=== PATIENT | male | born 1965 | race Caucasian/White ===

== ENCOUNTER 2024-01-24 09:19 | Outpatient (REF) | payer OTHER, SELFPAY ==
[2024-01-24 10:13] LABS: Eosinophils Absolute Auto 0.1 X10*3/uL (0.0-0.4); Eosinophils Percent Auto 3.5 % (0-4); Hematocrit 46.2 % (42.0-52.0); Hemoglobin 15.6 g/dl (14.0-18.0); Imm Gran Abs Auto 0.01 X10*3/uL (0.00-0.03); Imm Gran Pct Auto 0.3 % (0.0-0.4); Lymphocytes Absolute Auto 0.7 X10*3/uL (1.2-4.9); Lymphocytes Percent Auto 25.1 % (20-40); Mean Corpuscular HGB Conc 33.8 g/dl (31.0-36.0); Mean Corpuscular Hemoglobin 31.3 pg (27.0-33.0); Mean Corpuscular Volume 92.8 fL (80.0-98.0); Mean Platelet Volume 11.7 fL (9.4-12.4); Monocytes Absolute Auto 0.3 X10*3/uL (0.1-1.2); Monocytes Percent Auto 10.5 % (2-11); Neutrophils Absolute Auto 1.7 x10*3/uL (2.0-8.3); Neutrophils Percent Auto 59.6 % (45-73); Red Blood Count 4.98 X10*6/uL (4.60-5.80); Red Cell Distribution Width 14.4 % (11.0-16.0); White Blood Count 2.9 X10*3/uL (4.8-10.8)
[2024-01-24 10:17] LABS: Platelet Count 57 X10*3/uL (160-400)
[2024-01-24 10:20] LABS: Estimated Average Glucose 120 mg/dL; Hemoglobin A1c % 5.8 % (<6.0)
[2024-01-24 10:31] LABS: MANUAL DIFF FLAG SCAN
[2024-01-24 10:32] LABS: SLIDE REVIEW VERIFIED
[2024-01-24 10:45] LABS: Alanine Aminotransferase 146 U/L (0-40); Alkaline Phosphatase 152 U/L (39-117); Anion Gap 10 (12-20); Aspartate Amino Transferase 102 U/L (5-37); Bilirubin Total 0.9 mg/dL (0.0-1.0); Blood Urea Nitrogen 15 mg/dL (9-16); Carbon Dioxide 28 mmol/L (22-29); Chloride 105 mmol/L (96-108); Cholesterol 197 mg/dL (<200); Estimated Glomerular Filt Rate > 60; Glucose Random 123 mg/dL (60-115); HDL Cholesterol 60 mg/dL (>40); LDL Cholesterol Calculated 114 mg/dL (<100); Potassium 5.1 mmol/L (3.3-5.1); Sodium 138 mmol/L (135-145); Triglycerides 119 mg/dL (<150)
[2024-01-24 11:01] LABS: Thyroid Stimulating Hormone 2.06 uIU/mL (0.32-4.0)
[2024-01-25 11:03] LABS: Prolactin 56.2 ng/mL (2.0-18.0)
== END 2024-01-24 09:20 | disposition home or self-care (01) ==
LOC: HO.LAB 09:19
PROVIDERS: Visit Provider Nurse Practitioner Psychiatric/Mental Health
DX: Z79.899 Other long term (current) drug therapy (principal)
CPT/HCPCS: 36415; 80053; 80061; 83036; 84146; 84443; 85025

== ENCOUNTER 2024-01-29 12:23 | Inpatient (IN) | payer OTHER, SELFPAY ==
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
[2024-01-29 12:46] VITALS: BP 138/90; PULSE 115; RESP 17; TEMP 36.7; O2SAT 96; BMI 22.9
[2024-01-29 14:12] LABS: MANUAL DIFF FLAG NO
[2024-01-29 14:19] LABS: Basophils Percent Auto 1.1 % (0-2); Eosinophils Absolute Auto 0.1 X10*3/uL (0.0-0.4); Eosinophils Percent Auto 2.8 % (0-4); Imm Gran Abs Auto 0.01 X10*3/uL (0.00-0.03); Imm Gran Pct Auto 0.3 % (0.0-0.4); Lymphocytes Absolute Auto 0.9 X10*3/uL (1.2-4.9); Lymphocytes Percent Auto 23.9 % (20-40); Mean Corpuscular HGB Conc 34.9 g/dl (31.0-36.0); Mean Corpuscular Hemoglobin 31.3 pg (27.0-33.0); Mean Corpuscular Volume 89.6 fL (80.0-98.0); Mean Platelet Volume 11.5 fL (9.4-12.4); Monocytes Absolute Auto 0.4 X10*3/uL (0.1-1.2); Monocytes Percent Auto 12.1 % (2-11); Neutrophils Absolute Auto 2.1 x10*3/uL (2.0-8.3); Neutrophils Percent Auto 59.8 % (45-73); Platelet Count 59 X10*3/uL (160-400); Red Cell Distribution Width 13.7 % (11.0-16.0); White Blood Count 3.6 X10*3/uL (4.8-10.8)
[2024-01-29 14:29] LABS: Alanine Aminotransferase 127 U/L (0-40); Alkaline Phosphatase 151 U/L (39-117); Anion Gap 14 (12-20); Aspartate Amino Transferase 81 U/L (5-37); Bilirubin Direct 0.3 mg/dL (0.0-0.5); Bilirubin Total 0.5 mg/dL (0.0-1.0); Blood Urea Nitrogen 18 mg/dL (9-16); Carbon Dioxide 25 mmol/L (22-29); Chloride 101 mmol/L (96-108); Creatinine Clr Calc Pharmacy 68.7; Estimated Glomerular Filt Rate > 60; Ethanol < 10 mg/dL; Glucose Random 150 mg/dL (60-115); Potassium 4.3 mmol/L (3.3-5.1); Sodium 136 mmol/L (135-145)
--- NOTE | 2024-01-29 16:43 | PC.NURSE ---
this RN resumed care of pt at 1700. pt now awake and walking around pod in no apparent distress. urine obtained/sent to lab by tech. pt provided w/ snacks and gingerale upon request. pt now speaking w/ care team at this time. no sob/wob noted. respirations even and unlabored. plan of care ongoing.
[2024-01-29 17:13] LABS: Amphetamine Screen Urine Not Detected (Not Detect); Barbiturates, Urine Not Detected (Not Detect); Benzodiazepines Screen Urine Not Detected (Not Detect); Buprenorphine Scr Not Detected (Not Detect); Cannabinoid Screen Urine Not Detected (Not Detect); Cocaine Screen Urine Not Detected (Not Detect); Fentanyl, urine Not Detected (Not Detect); Methadone Screen, Urine Not Detected (Not Detect); Opiate Screen Urine POSITIVE (Not Detect); Oxycodone Screen Urine Not Detected (Not Detect); Phencyclidine Screen Urine Not Detected (Not Detect)
--- NOTE | 2024-01-29 19:28 | PC.NURSE ---
patient appears to remain at rest at present respirations are even and unlabored patient appears in no distress
[2024-01-30 06:11] VITALS: BP 125/72; PULSE 60; RESP 16; TEMP 36.6; O2SAT 96
--- NOTE | 2024-01-30 07:12 | PC.NURSE ---
Assumed care of patient. Patient is observed resting quietly in bed. No signs of distress, breathing is even and unlabored. Will continue plan of care.
[2024-01-30] MEDS: risperiDONE 3 MG TABLET PO ×2 (09:15→20:52)
[2024-01-30] MEDS: Propranolol HCL 10 MG TABLET PO (09:15)
[2024-01-30] MEDS: Benztropine Mesylate 1 MG TABLET PO ×2 (09:15→20:51)
[2024-01-30] MEDS: Omeprazole 20 MG CAPSULE.DR PO (09:15)
[2024-01-30] MEDS: Acetaminophen 325 MG TABLET 650 MG PO (10:59)
--- NOTE | 2024-01-30 11:27 | MHC.EDTECH ---
Patient refused EKG, patient states No and No, I don't need that . Patient resting, respirations even and unlabored.
[2024-01-30 16:16] VITALS: RESP 16
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
[2024-01-30] MEDS: traZODone HCL 50 MG TABLET 150 MG PO (20:52)
--- NOTE | 2024-01-30 23:24 | MHC.CARE ---
[facility] was contacted for insurance authorization and information is as followed: Josr from [facility] approved 5 days starting today 01/30/24 with the last cover day occurring on 02/03/24. Authorization number is as followed: [id number].
[2024-01-31 08:00] VITALS: RESP 16
[2024-01-31] MEDS: Benztropine Mesylate 1 MG TABLET PO ×2 (09:15→21:09)
[2024-01-31] MEDS: risperiDONE 3 MG TABLET PO ×2 (09:15→21:09)
--- NOTE | 2024-01-31 09:28 | PC.NURSE ---
Per administration WC staff to fill room officially despite current communication order. Staff aware that Prabhu continues to need a private room in practice.
--- NOTE | 2024-01-31 11:59 | P.HPPS_ITS ---
[facility] Date of Service: 01/31/24 Chief Complaint: psychosis Sources of Information: patient interviewed and chart reviewed [facility] Subjective Notes: Section 12B Narrative: As per ED Note: According to EMS, patient had an argument with another patient. There was no SI or HI threats. Patient states that this was an argument, after the argument he requested his medications to calm down, patient was put on a Section 12 and brought to the ED. Patient denies SI or HI, states that he feels much better Patient has limited engagement with interview. Focused on discharge. Irritable when discussing same. Recent history is very unclear. Was aggressive towards staff at respite as per patient when they got involved when he argued with another peer I was upset . unable to elaborate on details. Is aware he is held on a Section 12 and explained 3 business days and [place] warning. States he has no history of psychiatric illness, but does take psychiatric medications and that they do nothing for him, with the exception of trazodone for sleep. Reports that he gets services through [facility]. Reports being at a [facility] respite bed for the last 2-3 weeks. Patient adamantly denies hearing voices, feeling suicidal or homicidal. Denies feeling depressed or paranoid. Reports after treating him okay for discharge. noted lab work recently report 04/17/2024 with elevated prolactin, liver enzymes and low white cell count. Liver enzymes and white cell count improved. Unclear why these labs were done as there was no associated clinical information in the record i.e. likely ordered from an external source. Past Psychiatric History: States he has no history of psychiatric illness, but does take psychiatric medications and that they do nothing for him, with the exception of trazodone for sleep. Reports that he gets services through [facility]. Reports being at a [facility] respite bed for the last 2-3 weeks. Medical Evaluation Reviewed: Yes noted lab work recently report 04/17/2024 with elevated prolactin, liver enzymes and low white cell count. Liver enzymes and white cell count improved. Unclear why these labs were done as there was no associated clinical information in the record i.e. likely ordered from an external source. [facility] Social History: [facility] respite bed x 2-3 weeks as per patient through [facility]. unclear legal history and if he is on parole or probation. Reports being single. Has 2 adult children. Ninth grade education. Substance History: Reports used to have an issue with crack cocaine, but not in years Diagnostics Vital Signs (24Hr): Vital Signs - 24 hr 01/30/24 16:16 01/31/24 08:00 Respiratory Rate 16 16 BMI result Body Mass Index 22.9 Labs 01/29/24 14:08 01/29/24 14:08 Labs: Laboratory Results - last 48 hr 01/29/24 01/29/24 14:08 16:40 WBC 3.6 L RBC 4.80 Hgb 15.0 Hct 43.0 MCV 89.6 MCH 31.3 MCHC 34.9 RDW 13.7 Plt Count 59 L MPV 11.5 Immature Gran % (Auto) 0.3 Neut % (Auto) 59.8 Lymph % (Auto) 23.9 [place] % (Auto) 12.1 H Eos % (Auto) 2.8 Baso % (Auto) 1.1 Lymph # (Auto) 0.9 L [place] # (Auto) 0.4 Eos # (Auto) 0.1 Baso # (Auto) 0.0 Abs Immat Gran (auto) 0.01 Absolute Neuts (auto) 2.1 Absolute Nucleated RBC 0.000 Nucleated RBC % (auto) 0.0 Sodium 136 Potassium 4.3 Chloride 101 Carbon Dioxide 25 Anion Gap 14 BUN 18 H Creatinine 1.15 Estim Creat Clear Calc 68.7 Estimated GFR > 60 Random Glucose 150 H Calcium 10.0 Total Bilirubin 0.5 Direct Bilirubin 0.3 AST 81 H ALT 127 H Alkaline Phosphatase 151 H Total Protein 8.0 Albumin 4.0 Urine Opiates Screen POSITIVE H Ur Buprenorphine Scrn Not Detected Ur Oxycodone Screen Not Detected Urine Methadone Screen Not Detected Urine Fentanyl Screen Not Detected Ur Barbiturates Screen Not Detected Ur Phencyclidine Scrn Not Detected Ur Amphetamines Screen Not Detected U Benzodiazepines Scrn Not Detected Urine Cocaine Screen Not Detected U Marijuana (THC) Screen Not Detected Ethyl Alcohol < 10 Meds/Allergies Meds Home Medications ?Medication ?Instructions ?Recorded ?Confirmed ?Type benztropine 1 mg tablet 1 mg PO BID 01/30/24 01/30/24 History diphenhydramine HCl 25 mg tablet 25 mg PO BEDTIME 01/30/24 01/30/24 History (Banophen) pantoprazole 40 mg tablet,delayed 40 mg PO DAILY 01/30/24 01/30/24 History release propranolol 10 mg tablet 10 mg PO TID tremor 01/30/24 01/30/24 History risperidone 1 mg tablet 1 mg PO BEDTIME PRN Anxiety 01/30/24 01/30/24 History risperidone 3 mg tablet 3 mg PO BID 01/30/24 01/30/24 History trazodone 100 mg tablet 75 - 150 mg PO BEDTIME 01/30/24 01/30/24 History Allergies Allergies Allergy/AdvReac Type Severity Reaction Status Date / Time No Known Allergies Allergy Verified 01/29/24 12:58 Mental Status Exam Mental Status Exam Narrative: in room. Casually dressed. Irritable. Self-care limited. Guarded. Is alert and oriented. Very focused on discharge. Denies depression. Denies SI or HI. Denies hallucinations or paranoia. Insight and judgment limited Assessment & Plan Assessment & Plan (1) Psychosis: Status: Acute Code(s): F29 - Unspecified psychosis not due to a substance or known physiological condition Plan 58-year-old male with very unclear psychiatric history, on psychotropic regimen consistent with schizophrenia or schizoaffective disorder. Unclear who current treaters are or levels of support. Patient is a poor historian, guarded and also angry about being in the hospital. Noted lab work recently report 04/17/2024 with elevated prolactin, liver enzymes and low white cell count. Liver enzymes and white cell count improved. Unclear why these labs were done as there was no associated clinical information in the record i.e. likely ordered from an external source. 1) no changes to current regimen 2) S12 3) Primary team will need to liaise with community supports and providers regarding medication regimen, levels of support, rationale for recent lab work including prolactin level which was elevated and if there is any associated imaging for history related to same. Until that information is known, no clear indication to adjust current medication regimen Patient educated on: therapeutic strategies Informed Consent: further education needed Reason for continued inpatient stay Substantial Risk for: harm to others Statement Statement: I have reviewed the history and physical and performed a pertinent examination on my patient. No changes have occurred unless specified. If the History and Physical was not performed prior to admission, the Hospitalist's service will be consulted for completing the admission physical. Time Spent With Patient Time: Total time managing care of this patient today ____ minutes.
[2024-01-31 13:09] LABS: Cholesterol 172 mg/dL (<200); Estimated Average Glucose 117 mg/dL; HDL Cholesterol 50 mg/dL (>40); Hemoglobin A1c % 5.7 % (<6.0); LDL Cholesterol Calculated 98 mg/dL (<100); Triglycerides 122 mg/dL (<150)
[2024-01-31] MEDS: traZODone HCL 50 MG TABLET 150 MG PO (21:09)
[2024-02-01 09:00] VITALS: RESP 16
[2024-02-01] MEDS: risperiDONE 3 MG TABLET PO ×2 (10:24→19:54)
[2024-02-01] MEDS: Benztropine Mesylate 1 MG TABLET PO ×2 (10:24→19:54)
--- NOTE | 2024-02-01 10:42 | P.PNPSI_ITS ---
Subjective Subjective Date of Service: 02/01/24 Reason For Visit: psychosis Subjective Notes: [place] Warning and Section 12B Interim History: Met with patient. Discussed with nursing. Overall no management yesterday since yesterday. Today he is much less irritable. Reports he is sleeping well. Staff are treating him normally. Appetite good. Denies depression. Denies paranoia or hallucinations. Reports not needing to be in the hospital and wanting discharge. Medication Compliance: Yes Side effects from medications: No Attending Groups: No Review of Systems Acute medical concerns: No Review of Systems Review of Systems Nothing acute notable Mental Status Exam Mental Status Exam Narrative: in room. Casually dressed. Less irritable. Self-care limited. Guarded. Is alert and oriented. Remains focused on discharge. Denies depression. Denies SI or HI. Denies hallucinations or paranoia. Insight and judgment limited Diagnostics Vital Signs (24Hr): Vital Signs - 24 hr 02/01/24 09:00 Respiratory Rate 16 BMI result Body Mass Index 22.9 Labs 01/29/24 14:08 01/29/24 14:08 Labs: Laboratory Results - last 48 hr 01/29/24 14:08 Estimat Average Glucose 117 Hemoglobin A1c % 5.7 Triglycerides 122 Cholesterol 172 LDL Cholesterol, Calc 98 HDL Cholesterol 50 Medications Medications Current Medications Acetaminophen (Acetaminophen 325 Mg Tablet) 650 mg PO Q6H PRN PRN Reason: Headache/Pain Mild Scale (1-3) Al Hydroxide/Mg Hydroxide (Magnesium Hydrox/Alum Hydrox 30 Ml Oral.Susp) 30 ml PO Q6H PRN PRN Reason: Heartburn/Nausea Benztropine Mesylate (Benztropine Mesylate 1 Mg Tablet) 1 mg PO BID [facility] Last Admin: 02/01/24 10:24 Dose: 1 mg Diphenhydramine HCl (Diphenhydramine Hcl 25 Mg Capsule) 25 mg PO BEDTIME [facility] Last Admin: 01/31/24 21:11 Dose: Not Given Haloperidol Lactate (Haloperidol Lactate 5 Mg/Ml Vial) 5 mg IM BID PRN PRN Reason: If refuses PO Risperdal Hydroxyzine HCl (Hydroxyzine Hcl 25 Mg Tablet) 25 mg PO Q6H PRN PRN Reason: mild Anxiety Magnesium Hydroxide (Milk Of Magnesia 30 Ml Oral.Susp) 30 ml PO DAILY PRN PRN Reason: Constipation Nicotine (Nicotine 21 Mg Patch.Td24) 21 mg TRANSDERMA DAILY PRN PRN Reason: smoking cessation Nicotine Polacrilex (Nicotine Polacrilex 2 Mg Gum) 4 mg BUCCAL Q2H PRN PRN Reason: Nicotine Cravings Olanzapine (Olanzapine 5 Mg Tablet) 5 mg PO TID PRN PRN Reason: agitation Omeprazole (Omeprazole 20 Mg Capsule.Dr) 20 mg PO DAILY@0630 [facility] Last Admin: 02/01/24 06:17 Dose: Not Given Propranolol HCl (Propranolol Hcl 10 Mg Tablet) 10 mg PO TID [facility]; Protocol Last Admin: 02/01/24 10:00 Dose: Not Given Risperidone (Risperidone 1 Mg Tablet) 1 mg PO BEDTIME PRN PRN Reason: Anxiety Risperidone (Risperidone 3 Mg Tablet) 3 mg PO BID [facility] Last Admin: 02/01/24 10:24 Dose: 3 mg Trazodone HCl (Trazodone Hcl 50 Mg Tablet) 150 mg PO BEDTIME [facility] Last Admin: 01/31/24 21:09 Dose: 100 mg Trazodone HCl (Trazodone Hcl 50 Mg Tablet) 50 mg PO BEDTIME MRX1 PRN PRN Reason: Insomnia Allergies Allergies Allergy/AdvReac Type Severity Reaction Status Date / Time No Known Allergies Allergy Verified 01/29/24 12:58 Assessment & Plan Assessment & Plan (1) Psychosis: Status: Acute Code(s): F29 - Unspecified psychosis not due to a substance or known physiological condition Plan 58-year-old male with very unclear psychiatric history, on psychotropic regimen consistent with schizophrenia or schizoaffective disorder. Unclear who current treaters are or levels of support. Patient is a poor historian, guarded and also angry about being in the hospital. Noted lab work recently report 04/17/2024 with elevated prolactin, liver enzymes and low white cell count. Liver enzymes and white cell count improved. Unclear why these labs were done as there was no associated clinical information in the record i.e. likely ordered from an external source. 1) no changes to current regimen 2) S12 3) Primary team will need to liaise with community supports and providers regarding medication regimen, levels of support, rationale for recent lab work including prolactin level which was elevated and if there is any associated imaging for history related to same. Until that information is known, no clear indication to adjust current medication regimen 01/31: no changes Reason for continued inpatient stay Substantial Risk for: inability to function Time Spent With Patient Time: Total time managing care of this patient today ____ minutes.
[2024-02-01] MEDS: traZODone HCL 50 MG TABLET 150 MG PO (19:52)
[2024-02-02 08:00] VITALS: RESP 18
[2024-02-02] MEDS: risperiDONE 3 MG TABLET PO ×2 (08:38→20:47)
[2024-02-02] MEDS: Benztropine Mesylate 1 MG TABLET PO ×2 (08:38→20:47)
[2024-02-02 08:42] LABS: Alanine Aminotransferase 124 U/L (0-40); Albumin Level 3.7 g/dL (3.5-5.0); Alkaline Phosphatase 128 U/L (39-117); Anion Gap 13 (12-20); Aspartate Amino Transferase 98 U/L (5-37); Bilirubin Total 0.6 mg/dL (0.0-1.0); Blood Urea Nitrogen 15 mg/dL (9-16); Calcium 10.1 mg/dL (8.4-10.2); Carbon Dioxide 25 mmol/L (22-29); Chloride 106 mmol/L (96-108); Creatinine Clr Calc Pharmacy 82.3; Estimated Glomerular Filt Rate > 60; Glucose Random 118 mg/dL (60-115); Sodium 139 mmol/L (135-145); Total Protein 7.4 g/dL (6.5-8.0)
[2024-02-02] MEDS: traZODone HCL 50 MG TABLET 150 MG PO (20:46)
--- NOTE | 2024-02-02 22:44 | P.PNPSI_ITS ---
Subjective Subjective Date of Service: 02/02/24 Reason For Visit: psychosis Interim History: met with patient; discussed with team Pt calm, friendly pt discussed medication and he said he's doing well on Risperdal pills and he does not want to get on Invega Sustenna; pt explains he knows it's on the community angulo but that designer/writer should allow his input and he says he has been doing well on Risperdal and will continue to take it (Risperdal was only recently increased to 3 mg BID which seems to have made the difference). He expressed paranoid thinking about outpt provider that he and others maybe tampering with medications or that wanting him to take BEAL is about money...which is why he does not want BEAL. Pt said he's a very rich man and has a lot of connections and he is considering pressing charges against outpt prescriber. regarding incident at [facility], he says small verbal altercation which resolved soon; he says we agrue, then we laugh about it...that its not a big deal. that said, pt only expresses paranoid ideations when designer/writer or staff probe; otherwise, none expressed and pt has remained in good behavioral and impulse control and appropriate with peers and staff, making lighthearted jokes. Mental Status Exam Mental Status Exam Narrative: Pt is alert and oriented; behavior is cooperative, friendly and calm; patient is not in distress; dressed in casual attire with good hygiene; mood is described as good and affect congruent; eye contact appropriate; Speech is normal rate, volume and prosody and not pressured; no psychomotor agitation/retardation present; thought process is organized and goal directed; Thought content is on tx; otherwise pertinent to relevant topics; intermittent paranoid ideations but only expressed if staff inquires; denies any SI/HI. There is no evidence of perceptual disturbance and denies AVH. Patients insight and judgment impaired but at baseline and adequate. Diagnostics Vital Signs (24Hr): Vital Signs - 24 hr 02/02/24 08:00 Respiratory Rate 18 BMI result Body Mass Index 22.9 Labs 01/29/24 14:08 02/02/24 08:11 Labs: Laboratory Results - last 48 hr 02/02/24 08:11 Sodium 139 Potassium 5.0 Chloride 106 Carbon Dioxide 25 Anion Gap 13 BUN 15 Creatinine 0.96 Estim Creat Clear Calc 82.3 Estimated GFR > 60 Random Glucose 118 H Calcium 10.1 Total Bilirubin 0.6 AST 98 H ALT 124 H Alkaline Phosphatase 128 H Total Protein 7.4 Albumin 3.7 Medications Medications Current Medications Acetaminophen (Acetaminophen 325 Mg Tablet) 650 mg PO Q6H PRN PRN Reason: Headache/Pain Mild Scale (1-3) Al Hydroxide/Mg Hydroxide (Magnesium Hydrox/Alum Hydrox 30 Ml Oral.Susp) 30 ml PO Q6H PRN PRN Reason: Heartburn/Nausea Benztropine Mesylate (Benztropine Mesylate 1 Mg Tablet) 1 mg PO BID [facility] Last Admin: 02/02/24 20:47 Dose: 1 mg Diphenhydramine HCl (Diphenhydramine Hcl 25 Mg Capsule) 25 mg PO BEDTIME [facility] Last Admin: 02/02/24 20:48 Dose: Not Given Haloperidol Lactate (Haloperidol Lactate 5 Mg/Ml Vial) 5 mg IM BID PRN PRN Reason: If refuses PO Risperdal Hydroxyzine HCl (Hydroxyzine Hcl 25 Mg Tablet) 25 mg PO Q6H PRN PRN Reason: mild Anxiety Magnesium Hydroxide (Milk Of Magnesia 30 Ml Oral.Susp) 30 ml PO DAILY PRN PRN Reason: Constipation Nicotine (Nicotine 21 Mg Patch.Td24) 21 mg TRANSDERMA DAILY PRN PRN Reason: smoking cessation Nicotine Polacrilex (Nicotine Polacrilex 2 Mg Gum) 4 mg BUCCAL Q2H PRN PRN Reason: Nicotine Cravings Olanzapine (Olanzapine 5 Mg Tablet) 5 mg PO TID PRN PRN Reason: agitation Omeprazole (Omeprazole 20 Mg Capsule.Dr) 20 mg PO DAILY@0630 [facility] Last Admin: 02/02/24 08:39 Dose: Not Given Propranolol HCl (Propranolol Hcl 10 Mg Tablet) 10 mg PO TID [facility]; Protocol Last Admin: 02/02/24 20:49 Dose: Not Given Risperidone (Risperidone 1 Mg Tablet) 1 mg PO BEDTIME PRN PRN Reason: Anxiety Risperidone (Risperidone 3 Mg Tablet) 3 mg PO BID [facility] Last Admin: 02/02/24 20:47 Dose: 3 mg Trazodone HCl (Trazodone Hcl 50 Mg Tablet) 150 mg PO BEDTIME [facility] Last Admin: 02/02/24 20:46 Dose: 100 mg Trazodone HCl (Trazodone Hcl 50 Mg Tablet) 50 mg PO BEDTIME MRX1 PRN PRN Reason: Insomnia Allergies Allergies Allergy/AdvReac Type Severity Reaction Status Date / Time No Known Allergies Allergy Verified 01/29/24 12:58 Assessment & Plan Assessment & Plan (1) Psychosis: Status: Acute Code(s): F29 - Unspecified psychosis not due to a substance or known physiological condition Plan 58-year-old male with very unclear psychiatric history, on psychotropic regimen consistent with schizophrenia or schizoaffective disorder. Unclear who current treaters are or levels of support. Patient is a poor historian, guarded and also angry about being in the hospital. Noted lab work recently report 04/17/2024 with elevated prolactin, liver enzymes and low white cell count. Liver enzymes and white cell count improved. Unclear why these labs were done as there was no associated clinical information in the record i.e. likely ordered from an external source. Hospital course: irritable when first came to unit, he was upset that was forced to come to hospital, remained on 12b and expressed paranoid thinking towards this designer/writer. He was continued on Risperdal 3mg BID which he took without problem. Over next couple of days, patient mostly kept to himself, but remained in good behavioral/impulse control, adherent with meds, appropriate w/ peers/staff. 5/6 Pt calm, friendly pt discussed medication and he said he's doing well on Risperdal pills and he does not want to get on Invega Sustenna; pt explains he knows it's on the community angulo but that designer/writer should allow his input and he says he has been doing well on Risperdal and will continue to take it (Risperdal was only recently increased to 3 mg BID which seems to have made the difference). He expressed paranoid thinking about outpt provider that he and others maybe tampering with medications or that wanting him to take BEAL is about money...which is why he does not want BEAL. Pt said he's a very rich man and has a lot of connections and he is considering pressing charges against outpt prescriber. -regarding incident at [facility], he says small verbal altercation which resolved soon; he says we agrue, then we laugh about it...that its not a big deal. -that said, pt only expresses paranoid ideations when designer/writer or staff probe; otherwise, none expressed and pt has remained in good behavioral and impulse control and appropriate with peers and staff, making lighthearted jokes. -pt makes a good point, that if he takes PO meds, why does he need BEAL; designer/writer will reach out for further collateral Formulation: hx of psychosis, anti-social PD and substance abuse so far, it seems that pt came to [facility] on Risperdal which was recently increased to 3mg BID. Need more collateral but it seems possible that pt's decompensation was due to being on too low a dose of risperdal compounded by some recent substance abuse (+opioids). On admission, Pt was continued on 3mg BID and has been stable, organized speech and behavior and in good behavioral and impulse control, appropriate w/ peers and staff; no manic symptoms; does not appear internally preoccupied, eating and sleeping well.. Pt continues to have some underyling paranoid/grandiose ideations, however they don't come up and are not expressed unless staff inquires and it is likely his baseline. PLAN: 12b due 02/03 Continue Risperdal 3mg BID congentin 1mg BID propranolol (which he typically refuses) Prolactin level elevated but has lowered since first lab mild-moderately elevated LFT's but stable and lowered since previous lab UDS +opiates on admission Patient educated on: diagnosis and medication risk/benefits Informed Consent: understands, does not understand and further education needed Reason for continued inpatient stay Substantial Risk for: stable for discharge Time Spent With Patient Time: Total time managing care of this patient today ____ minutes.
[2024-02-03 08:00] VITALS: RESP 16
[2024-02-03 08:04] LABS: Prolactin 39.1 ng/mL (2.0-18.0)
[2024-02-03] MEDS: risperiDONE 3 MG TABLET PO ×2 (09:57→20:40)
[2024-02-03] MEDS: Benztropine Mesylate 1 MG TABLET PO ×2 (09:57→20:41)
[2024-02-03] MEDS: Paliperidone Palmitate 234 MG/1.5 ML SYRINGE IM (16:38)
--- NOTE | 2024-02-03 18:06 | P.PNPSI_ITS ---
Subjective Subjective Date of Service: 02/03/24 Reason For Visit: psychosis Interim History: Patient; discussed with team; obtain collateral from nurse and tower supervisor at [facility] he remains in good mood and good behavioral and impulse control, appropriate with peers and staff, organized in speech and behavior. Patient is sleeping and eating well. He initially did not want to get the long-acting injectable however agreed to it since it is what the staff at [facility] are requiring for him to go back. However he remains on 12 B and wants to discharge tomorrow and is unwilling to stay any longer, saying he feels just overall to confined. He understands that the [facility] respite Facility wants him to 1st go to a community respite for few days before he goes back to their [facility] respite; he is willing to do this but only if it coincides with him discharging tomorrow, Friday. Otherwise he said he will be fine on his own. Financial Operations Analyst discussed case with staff, nurse and tower supervisor at [facility]. Turns out that patient was admitted there on Risperdal 2 mg b.i.d. on December 18; within a few weeks psychotic symptoms began to emerge and then on January 22, less than a week before he was admitted here, his dose was increased to 3 mg b.i.d.; during this time he was also engaged to some degree in substance abuse as his UDS was positive. Nurse says that despite psychotic symptoms he was typically always redirectable and overall not a problem. He did have words and postured towards a peer but she does not know what insight this. Navy Fighter Pilot at [facility] insist the patient 1st needs to go to a community respite before returning there, wanting him to further demonstrate stability. It was clearly communicated that patient has been stable more less since admission. Mental Status Exam Mental Status Exam Narrative: Pt is alert and oriented; behavior is cooperative, friendly and calm; patient is not in distress; dressed in casual attire with good hygiene; mood is described as good and affect congruent; eye contact appropriate; Speech is normal rate, volume and prosody and not pressured; no psychomotor agitation/retardation present; thought process is organized and goal directed; Thought content is on tx; otherwise pertinent to relevant topics; intermittent paranoid ideations but only expressed if staff inquires; denies any SI/HI. There is no evidence of perceptual disturbance and denies AVH. Patients insight and judgment impaired but at baseline and adequate. Diagnostics Vital Signs (24Hr): Vital Signs - 24 hr 02/03/24 08:00 Respiratory Rate 16 BMI result Body Mass Index 22.9 Labs 01/29/24 14:08 02/02/24 08:11 Labs: Laboratory Results - last 48 hr 02/02/24 08:11 Sodium 139 Potassium 5.0 Chloride 106 Carbon Dioxide 25 Anion Gap 13 BUN 15 Creatinine 0.96 Estim Creat Clear Calc 82.3 Estimated GFR > 60 Random Glucose 118 H Calcium 10.1 Total Bilirubin 0.6 AST 98 H ALT 124 H Alkaline Phosphatase 128 H Total Protein 7.4 Albumin 3.7 Prolactin 39.1 H Medications Medications Current Medications Acetaminophen (Acetaminophen 325 Mg Tablet) 650 mg PO Q6H PRN PRN Reason: Headache/Pain Mild Scale (1-3) Al Hydroxide/Mg Hydroxide (Magnesium Hydrox/Alum Hydrox 30 Ml Oral.Susp) 30 ml PO Q6H PRN PRN Reason: Heartburn/Nausea Benztropine Mesylate (Benztropine Mesylate 1 Mg Tablet) 1 mg PO BID [facility] Last Admin: 02/03/24 09:57 Dose: 1 mg Diphenhydramine HCl (Diphenhydramine Hcl 25 Mg Capsule) 25 mg PO BEDTIME [facility] Last Admin: 02/02/24 20:48 Dose: Not Given Haloperidol Lactate (Haloperidol Lactate 5 Mg/Ml Vial) 5 mg IM BID PRN PRN Reason: If refuses PO Risperdal Hydroxyzine HCl (Hydroxyzine Hcl 25 Mg Tablet) 25 mg PO Q6H PRN PRN Reason: mild Anxiety Magnesium Hydroxide (Milk Of Magnesia 30 Ml Oral.Susp) 30 ml PO DAILY PRN PRN Reason: Constipation Nicotine (Nicotine 21 Mg Patch.Td24) 21 mg TRANSDERMA DAILY PRN PRN Reason: smoking cessation Nicotine Polacrilex (Nicotine Polacrilex 2 Mg Gum) 4 mg BUCCAL Q2H PRN PRN Reason: Nicotine Cravings Olanzapine (Olanzapine 5 Mg Tablet) 5 mg PO TID PRN PRN Reason: agitation Omeprazole (Omeprazole 20 Mg Capsule.Dr) 20 mg PO DAILY@0630 [facility] Last Admin: 02/03/24 06:17 Dose: Not Given Propranolol HCl (Propranolol Hcl 10 Mg Tablet) 10 mg PO TID [facility]; Protocol Last Admin: 02/03/24 14:08 Dose: Not Given Risperidone (Risperidone 1 Mg Tablet) 1 mg PO BEDTIME PRN PRN Reason: Anxiety Risperidone (Risperidone 3 Mg Tablet) 3 mg PO BID [facility] Last Admin: 02/03/24 09:57 Dose: 3 mg Trazodone HCl (Trazodone Hcl 50 Mg Tablet) 150 mg PO BEDTIME [facility] Last Admin: 02/02/24 20:46 Dose: 100 mg Trazodone HCl (Trazodone Hcl 50 Mg Tablet) 50 mg PO BEDTIME MRX1 PRN PRN Reason: Insomnia Allergies Allergies Allergy/AdvReac Type Severity Reaction Status Date / Time No Known Allergies Allergy Verified 01/29/24 12:58 Assessment & Plan Assessment & Plan (1) Psychosis: Status: Acute Code(s): F29 - Unspecified psychosis not due to a substance or known physiological condition (2) Schizophrenia: Status: Acute Code(s): F20.9 - Schizophrenia, unspecified (3) Opioid use disorder: Status: Acute Code(s): F11.90 - Opioid use, unspecified, uncomplicated Plan 58-year-old male with very unclear psychiatric history, on psychotropic regimen consistent with schizophrenia or schizoaffective disorder. Unclear who current treaters are or levels of support. Patient is a poor historian, guarded and also angry about being in the hospital. Noted lab work recently report 04/17/2024 with elevated prolactin, liver enzymes and low white cell count. Liver enzymes and white cell count improved. Unclear why these labs were done as there was no associated clinical information in the record i.e. likely ordered from an external source. Hospital course: irritable when first came to unit, he was upset that was forced to come to hospital, remained on 12b and expressed paranoid thinking towards this web content writer. He was continued on Risperdal 3mg BID which he took without problem. Over next couple of days, patient mostly kept to himself, but remained in good behavioral/impulse control, adherent with meds, appropriate w/ peers/staff. 5/6 Pt calm, friendly pt discussed medication and he said he's doing well on Risperdal pills and he does not want to get on Invega Sustenna; pt explains he knows it's on the [facility] angulo but that web content writer should allow his input and he says he has been doing well on Risperdal and will continue to take it (Risperdal was only recently increased to 3 mg BID which seems to have made the difference). He expressed paranoid thinking about outpt provider that he and others maybe tampering with medications or that wanting him to take BEAL is about money...which is why he does not want BEAL. Pt said he's a very rich man and has a lot of connections and he is considering pressing charges against outpt prescriber. -regarding incident at [facility], he says small verbal altercation which resolved soon; he says we agrue, then we laugh about it...that its not a big deal. -that said, pt only expresses paranoid ideations when web content writer or staff probe; otherwise, none expressed and pt has remained in good behavioral and impulse control and appropriate with peers and staff, making lighthearted jokes. -pt makes a good point, that if he takes PO meds, why does he need BEAL; web content writer will reach out for further collateral 02/02 he remains in good mood and good behavioral and impulse control, appropriate with peers and staff, organized in speech and behavior. Patient is sleeping and eating well. He initially did not want to get the long-acting injectable however agreed to it since it is what the staff at [facility] are requiring for him to go back. Has no ill will towards peer at [facility] and would like to go back. However he remains on 12 B and wants to discharge tomorrow and is unwilling to stay any longer, saying he feels just overall to confined. He understands that the [facility] respite Facility wants him to 1st go to a community respite for few days before he goes back to their [facility] respite; he is willing to do this but only if it coincides with him discharging tomorrow, Friday. Otherwise he said he will be fine on his own. Formulation/reasoning: hx of psychosis, anti-social PD and substance abuse On admission, patient was irritable about having to come to the hospital and did express paranoid thinking. However was good behavioral/impulse control, adherent with treatment plan, continued on 3mg BID and going forward, he was stable, organized in speech/behavior, appropriate with peers and staff and in good behavioral and impulse control throughout his time in the unit; no manic symptoms; and has not appeared internally preoccupied, eating and sleeping well. Collateral obtained and pt was admitted to [facility] on 12/18 and on Risperdal 2mg BID; over next few weeks psychotic symptoms started to emerge (internally preoccupied, expressing paranoid thinking) and on 01/22 (less then a week before this admission) patient is dose was increased to Risperdal 3 mg b.i.d.. It is web content writer's opinion that this dose increase on 01/22 was the medication change that patient needed; as expected, it did not produce immediate results, which accounts for his continued dysregulation/incident over the next few days (combined with some amount of substance abuse, UDS +opiates on admission); but after a week on this increased dose, patient began to demonstrate the benefit from its effect and thus, he has remained stable, organized, appropriate in good behavioral and impulse control throughout this admission. Patient agreed to take the long-acting injectable out of compliance to the staff request; however per collateral, patient has been taking p.o. medication regularly and web content writer could not have otherwise made the case to force him to be on long-acting Invega Sustenna. Pt continues to have some underyling paranoid/grandiose ideations, however this is very likely his baseline and these ideations don't come up and are not expressed unless staff specifically inquires. As mentioned, the necessary medication change was already made on 01/22 and as patient has remained stable and at baseline throughout this admission, web content writer can not make the case for any further med changes at this time. Patient is on a 12B. He has consistently demonstrated safe, organized and appropriate behavior and been without any SI/HI. Patient does not meet criteria for involuntary commitment; he is not in imminent risk for harm to self or others and his request for discharge honored. Patient received Invega Sustenna 234 mg 02/02; for long-acting injectable to work he needs a follow-up dose of Invega Sustenna 156 mg in 5-7 days. It is not clear that patient will get this and so will have to discuss continuing p.o. Risperdal. Patient has elevated prolactin level however it has gone down since previous lab. Patient denies any medication side effects. Invega Sustenna is court ordered and patient requires antipsychotic in order to be functional unsafe in the community; he does not want to be switch to Haldol (which can also increase prolactin) or given that there are no symptoms, it is not appropriate at this time to add Abilify. LFTs mild to moderately elevated on admission but have remained stable and decreased some. PLAN: 12b due 02/03 Received Invega Sustenna 234 mg 02/02 Continue Risperdal 3mg BID congentin 1mg BID propranolol (which he typically refuses) Prolactin level elevated but has lowered since first lab mild-moderately elevated LFT's but stable and lowered since previous lab UDS +opiates on admission Patient educated on: diagnosis, medication risk/benefits and therapeutic strategies Informed Consent: understands Reason for continued inpatient stay Substantial Risk for: stable for discharge Time Spent With Patient Time: Total time managing care of this patient today ____ minutes.
--- NOTE | 2024-02-03 19:18 | PC.NURSE ---
This medical underwriter received a call from Sasha RN from [facility]. Call was placed on hold and pt was notified of call. Pt gave medical underwriter verbal consent to speak with Sasha over the phone. Pt stated You can talk to her. Go ahead it's fine. Tell her that I am willing to take a higher dose of medication if that is needed . Sasha stated that she needed to confirm the dose of Risperdal. Sasha stated there was typo on the medication information sent to [facility], which listed Risperdal 3mg (take 2) twice a day. Sasha stated pt was taking Risperdal 3mg BID, and she wanted to confirm that was the dose ordered at [facility]. Current dose of Risperdal 3mg BID was confirmed with Sasha. Dr Haddad made aware of call.
[2024-02-03] MEDS: traZODone HCL 50 MG TABLET 150 MG PO (20:40)
[2024-02-04 08:00] VITALS: RESP 18
[2024-02-04] MEDS: Benztropine Mesylate 1 MG TABLET PO (08:42)
[2024-02-04] MEDS: risperiDONE 3 MG TABLET PO (08:42)
--- NOTE | 2024-02-04 08:55 | P.DS_ITS ---
DS: Providers Provider Date of Service: 02/04/24 Date of admission: 01/30/24 04:09 Date of discharge: 02/04/24 Primary care physician: Unknown Physician Attending physician on admission: Kirill Turcios Attending physician on discharge: Boyd Haddad DS: Diagnosis Discharge Diagnosis (1) Psychosis: Status: Acute (2) Schizophrenia: Status: Acute (3) Opioid use disorder: Status: Acute DS: Medications Discharge Medications Home Medications: Home Medications ?Medication ?Instructions ?Recorded ?Confirmed diphenhydramine HCl 25 mg tablet 25 mg PO BEDTIME 01/30/24 01/30/24 (Banophen) pantoprazole 40 mg tablet,delayed 40 mg PO DAILY 01/30/24 01/30/24 release propranolol 10 mg tablet 10 mg PO TID tremor 01/30/24 01/30/24 risperidone 1 mg tablet 1 mg PO BEDTIME PRN Anxiety 01/30/24 01/30/24 Previous Rx's ?Medication ?Instructions ?Recorded benztropine 1 mg tablet 1 mg PO BID 30 days #60 tabs 02/04/24 risperidone 3 mg tablet 3 mg PO BID 30 days #60 tabs 02/04/24 trazodone 100 mg tablet 100 - 150 mg (1 - 1.5 x 100 mg) PO 02/04/24 BEDTIME PRN insomnia 30 days #45 tabs Mental Status Exam Mental Status Exam Narrative: Pt is alert and oriented; behavior is cooperative, friendly and calm; patient is not in distress; dressed in casual attire with good hygiene; mood is described as good and affect congruent; eye contact appropriate; Speech is normal rate, volume and prosody and not pressured; no psychomotor agitation/retardation present; thought process is organized and goal directed; Thought content is on tx; otherwise pertinent to relevant topics; intermittent paranoid ideations but only expressed if staff inquires; denies any SI/HI. There is no evidence of perceptual disturbance and denies AVH. Patients insight and judgment impaired but at baseline and adequate. Data Data Completed and Pending Completed studies during hospitalization [Text1]: 01/29/24 01/29/24 02/02/24 14:08 16:40 08:11 WBC 3.6 L RBC 4.80 Hgb 15.0 Hct 43.0 MCV 89.6 MCH 31.3 MCHC 34.9 RDW 13.7 Plt Count 59 L MPV 11.5 Immature Gran % (Auto) 0.3 Neut % (Auto) 59.8 Lymph % (Auto) 23.9 [place] % (Auto) 12.1 H Eos % (Auto) 2.8 Baso % (Auto) 1.1 Lymph # (Auto) 0.9 L [place] # (Auto) 0.4 Eos # (Auto) 0.1 Baso # (Auto) 0.0 Abs Immat Gran (auto) 0.01 Absolute Neuts (auto) 2.1 Absolute Nucleated RBC 0.000 Nucleated RBC % (auto) 0.0 Sodium 136 139 Potassium 4.3 5.0 Chloride 101 106 Carbon Dioxide 25 25 Anion Gap 14 13 BUN 18 H 15 Creatinine 1.15 0.96 Estim Creat Clear Calc 68.7 82.3 Estimated GFR > 60 > 60 Random Glucose 150 H 118 H Estimat Average Glucose 117 Hemoglobin A1c % 5.7 Calcium 10.0 10.1 Total Bilirubin 0.5 0.6 Direct Bilirubin 0.3 AST 81 H 98 H ALT 127 H 124 H Alkaline Phosphatase 151 H 128 H Total Protein 8.0 7.4 Albumin 4.0 3.7 Triglycerides 122 Cholesterol 172 LDL Cholesterol, Calc 98 HDL Cholesterol 50 Prolactin 39.1 H Urine Opiates Screen POSITIVE H Ur Buprenorphine Scrn Not Detected Ur Oxycodone Screen Not Detected Urine Methadone Screen Not Detected Urine Fentanyl Screen Not Detected Ur Barbiturates Screen Not Detected Ur Phencyclidine Scrn Not Detected Ur Amphetamines Screen Not Detected U Benzodiazepines Scrn Not Detected Urine Cocaine Screen Not Detected U Marijuana (THC) Screen Not Detected Ethyl Alcohol < 10 DS: Summary Hospital Course Hospital Course: 58-year-old male with very unclear psychiatric history, on psychotropic regimen consistent with schizophrenia or schizoaffective disorder. Unclear who current treaters are or levels of support. Patient is a poor historian, guarded and also angry about being in the hospital. Noted lab work recently report 04/17/2024 with elevated prolactin, liver enzymes and low white cell count. Liver enzymes and white cell count improved. Unclear why these labs were done as there was no associated clinical information in the record i.e. likely ordered from an external source. Hospital course: irritable when first came to unit, he was upset that was forced to come to hospital, remained on 12b and expressed paranoid thinking towards this automobile and property underwriter. He was continued on Risperdal 3mg BID which he took without problem. Over next couple of days, patient mostly kept to himself, but remained in good behav ioral/impulse control, adherent with meds, appropriate w/ peers/staff. -automobile and property underwriter discussed case with outpatient provider Leona who reported that patient has done well enough on only 1 antipsychotic and that Risperdal 3 mg b.i.d. should be sufficient; when stable, overall does well and is functional. 02/01 Pt calm, friendly pt discussed medication and he said he's doing well on Risperdal pills and he does not want to get on Invega Sustenna; pt explains he knows it's on the [facility] but that automobile and property underwriter should allow his input and he says he has been doing well on Risperdal and will continue to take it (Risperdal was only recently increased to 3 mg BID which seems to have made the difference). He expressed paranoid thinking about outpt provider that he and others maybe tampering with medications or that wanting him to take BEAL is about money...which is why he does not want BEAL. Pt said he's a very rich man and has a lot of connections and he is considering pressing charges against outpt prescriber. -regarding incident at Respite, he says small verbal altercation which resolved soon; he says we agrue, then we laugh about it...that its not a big deal. -that said, pt only expresses paranoid ideations when automobile and property underwriter or staff probe; otherwise, none expressed and pt has remained in good behavioral and impulse control and appropriate with peers and staff, making lighthearted jokes. -pt makes a good point, that if he takes PO meds, why does he need BEAL; automobile and property underwriter will reach out for further collateral 02/02 he remains in good mood and good behavioral and impulse control, appropriate with peers and staff, organized in speech and behavior. Patient is sleeping and eating well. He initially did not want to get the long-acting injectable however agreed to it since it is what the [facility] requiring for him to go back. Has no ill will towards peer at [facility] and would like to go back. However he remains on 12 B and wants to discharge tomorrow and is unwilling to stay any longer, saying he feels just overall to confined. He understands that the [facility] respite Facility wants him to 1st go to a community respite for few days before he goes back to their [facility] respite; he is willing to do this but only if it coincides with him discharging tomorrow, Friday. Otherwise he said he will be fine on his own. Formulation/reasoning: hx of psychosis, anti-social PD and substance abuse On admission, patient was irritable about having to come to the hospital and did express paranoid thinking. However was good behavioral/impulse control, adhere nt with treatment plan, continued on 3mg BID and going forward, he was stable, organized in speech/behavior, appropriate with peers and staff and in good behavioral and impulse control throughout his time in the unit; no manic symptoms; and has not appeared internally preoccupied, eating and sleeping well. Collateral obtained and pt was admitted to [facility] on 12/18 and on Risperdal 2mg BID; over next few weeks psychotic symptoms started to emerge (internally preoccupied, expressing paranoid thinking) and on 01/22 (less then a week before this admission) patient is dose was increased to Risperdal 3 mg b.i.d.. It is automobile and property underwriter's opinion that this dose increase on 01/22 was the medication change that patient needed; as expected, it did not produce immediate results, which accounts for his continued dysregulation/incident over the next few days (combined with some amount of substance abuse, UDS +opiates on admission); but after a week on this increased dose, patient began to demonstrate the benefit from its effect and thus, he has remained stable, organized, appropriate in good behavioral and impulse control throughout this admission. Patient agreed to take the long-acting injectable out of compliance to the staff request; however per collateral, patient has been taking p.o. medication regularly and automobile and property underwriter could not have otherwise made the case to force him to be on long-acting Invega Sustenna. Pt continues to have some underyling paranoid/grandiose ideations, however this is very likely his baseline and these ideations don't come up and are not expressed unless staff specifically inquires. As mentioned, the necessary medication change was already made on 01/22 and as patient has remained stable and at baseline throughout this admission, automobile and property underwriter can not make the case for any further med changes at this time. Patient is on a 12B. He has consistently demonstrated safe, organized and appropriate behavior and been without any SI/HI. On day of discharge patient was accepted to [facility] Respite making returned to the [facility] respite a viable option. Patient not in imminent risk for harm to self or others and his request for discharge honored. Patient received Invega Sustenna 234 mg 02/02; for long-acting injectable to work he needs a follow-up dose of Invega Sustenna 156 mg in 5-7 days. Patient says he will continue with BEAL and get next installment; incase pt changes his mind discussed continuing p.o. Risperdal (sent script for 30 days in case does not get Invega sutenna f/u). Discussed with patient his elevated prolactin level of which he is aware (is chronic) however it has gone down since previous lab. Patient denies any medication side effects. Invega Sustenna is court ordered and patient requires antipsychotic in order to be functional unsafe in the community; he does not want to be switch to Haldol (which can also increase prolactin) or given that there are no symptoms, it is not appropriate at this time to add Abilify. LFTs mild to moderately elevated on admission but have remained stable and decreased some. Received Invega Sustenna 234 mg 02/03/24 Continue Risperdal 3mg BID (discontinue p.o. if patient gets Invega Sustenna 156 mg on 02/09/2024) congentin 1mg BID Propranolol switched to prn at pt request Time spent discussing smoking cessation with patient: 3 to 10 minutes Status at Discharge Functional status at discharge: independent ambulation Overall status at discharge: patient is back to baseline Time Spent with Patient Time attestation: Total time managing care of this patient today _50___ minutes. Time spent: Greater than 30 minutes Discharge Plan Discharge Anticipated Discharge Date/Time: 02/04/24 11:30 Patient Disposition: Respite Discharge Diagnosis: Schizophrenia Referrals: Physician,Unknown J [Primary Care Provider] - 1 Week Discharge Medications: New risperidone [Risperdal] 3 mg tablet 3 mg PO BEDTIME 30 Days Qty: 30 0RF benztropine 1 mg tablet 1 mg PO BID 30 Days Qty: 60 0RF trazodone 100 mg tablet See Rx Instructions .ROUTE .COMPLEX PRN (Reason: insomnia) 30 Days Qty: 45 0RF Rx Instructions: take 1 to 1.5 tabs at bedtime as needed for insomnia Invega Sustenna 156 mg/mL syringe 156 mg IM ONCE 1 Days Qty: 1 0RF Rx Instructions: administer on 02/09/24 Invega Sustenna 234 mg/1.5 mL syringe 234 mg IM Q30D 28 Days Qty: 1.5 0RF Rx Instructions: administer on 03/05/24 propranolol 10 mg Tablet 10 mg PO TID PRN (Reason: anxiety or tremor) 30 Days Qty: 30 0RF Protocol: Hold for SBP/HR < HOLD for SBP < : 90 HOLD for HR < : 60 Continued risperidone 1 mg tablet 1 mg PO BEDTIME PRN (Reason: Anxiety) 30 Days Qty: 10 0RF Discontinued risperidone 3 mg tablet 3 mg PO BID trazodone 100 mg tablet 75 - 150 mg PO BEDTIME pantoprazole 40 mg tablet,delayed release (DR/EC) 40 mg PO DAILY benztropine 1 mg tablet 1 mg PO BID propranolol 10 mg tablet 10 mg PO TID diphenhydramine HCl [Banophen] 25 mg tablet 25 mg PO BEDTIME Discharge Orders: Discharge Order (Routine); Ordered 02/04/24 Ordered By: Boyd Haddad Diet: Regular diet Activity on Discharge: As tolerated Stand Alone Forms: Patient Portal Discharge page, Community Support Print Language: Latvian Care Plan Goals: Maintain mood and safe behaviors Take medications as prescribed Continue to pursue sobriety Practice coping skills Continue with outpatient providers and reach out to them as needed Health Concerns: Mood stability and behaviors Sobriety Mildly elevated prolactin Plan of Treatment: Follow up with your PCP, psychiatric provider and other outpatient providers regarding above concerns Continue Risperdal 3mg BID (discontinue p.o. once patient gets Invega Sustenna 156 mg on 02/09/2024) Take medications as prescribed Assessment: Risk assessment at time of discharge:? Patient was interviewed prior to discharge and found to be fully oriented and without any SI or HI. Patient has improved insight and judgment and wants to continue treatment. Patient is not in imminent risk of harm to self or others and has a safety plan that includes presenting to the closest ER or calling 911 if feeling unsafe.? Patient has been observed closely by nursing and unit staff throughout admission; patient has n ot engaged in any behaviors that suggest dangerousness to self or others and has demonstrated appropriate behaviors and impulse control
[2024-02-04] MEDS: Naloxone HCl Nasal TAKE HOME 4 MG SPRAY 8 MG NOSTRILALT (11:20)
== END 2024-02-04 11:30 | disposition home or self-care (01) | DRG 885 ==
LOC: HO.ED 19:05 → HO.PM5 01-30 14:17
PROVIDERS: Psychiatry & Neurology Psychiatry; Admitting Provider Psychiatry & Neurology Psychiatry; Emergency Provider Emergency Medicine; Visit Provider Psychiatry & Neurology Psychiatry
DX: F20.9 Schizophrenia, unspecified (principal); Z59.02 Unsheltered homelessness; F11.90 Opioid use, unspecified, uncomplicated; F17.210 Nicotine dependence, cigarettes, uncomplicated; Z71.6 Tobacco abuse counseling; Z79.899 Other long term (current) drug therapy
CPT/HCPCS: 36415; 80048; 80053; 80061; 80076; 80307; 83036; 84146; 85025; 99285; J2426; S9485

== ENCOUNTER → 2024-01-30 04:09 | Outpatient (BNV) | payer OTHER, SELFPAY | PROVIDERS: Admitting Provider Psychiatry & Neurology Psychiatry; Emergency Provider Emergency Medicine; Visit Provider Psychiatry & Neurology Psychiatry | DX: F29 Unspecified psychosis not due to a substance or known physiological condition (principal); F20.0 Paranoid schizophrenia; F11.90 Opioid use, unspecified, uncomplicated | CPT/HCPCS: 99222; 99231; 99232; 99239 ==

== ENCOUNTER 2024-10-15 23:33 | Inpatient (IN) | payer MEDICARE, SELFPAY ==
[2024-10-15 23:45] VITALS: BP 102/58; PULSE 90; RESP 15; TEMP 36.9; O2SAT 97
[2024-10-16 00:51] VITALS: BMI 21.1
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
[2024-10-16] MEDS: Flu Vacc TS2024-25(6mos up)/PF 0.5 ML SYRINGE IM (08:44)
[2024-10-16 08:58] LABS: Alanine Aminotransferase 264 U/L (0-40); Albumin Level 3.8 g/dL (3.5-5.0); Alkaline Phosphatase 230 U/L (39-117); Anion Gap 9 (12-20); Aspartate Amino Transferase 163 U/L (5-37); Bilirubin Total 0.4 mg/dL (0.0-1.0); Blood Urea Nitrogen 16 mg/dL (9-16); Calcium 9.4 mg/dL (8.4-10.2); Carbon Dioxide 28 mmol/L (22-29); Chloride 104 mmol/L (96-108); Creatinine Clr Calc Pharmacy 92.1; Estimated Glomerular Filt Rate > 60; Glucose Random 156 mg/dL (60-115); Sodium 136 mmol/L (135-145); Total Protein 7.7 g/dL (6.5-8.0)
[2024-10-16 09:18] VITALS: BP 137/76; PULSE 77; RESP 18; TEMP 36.9; O2SAT 99
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
[2024-10-16] MEDS: Acetaminophen 325 MG TABLET 650 MG PO ×2 (10:26→17:03)
[2024-10-16] MEDS: hydrOXYzine HCL 25 MG TABLET PO (10:28)
--- NOTE | 2024-10-16 13:41 | P.CONHOSP_ITS ---
History of Present Illness Data of Consult Service Date: 10/16/24 Primary Care Provider: Unknown Physician HPI 59 y.o. male, who is amitted from [facility] [place], he had presented there from a goup home secondary to paranoid delusions, erratic behavior, and not taking his meds. He has been having paranoid delusions and calling EMS. He was sent to the ED under Dyer's orders. He has history of incarcerations, arrest for assault and battery on a person 13 years of age. history of being sexually inappropriate, and is deemed level 3 sexual offender. He was cooperative with me and offered no SI, HI and had an organized thought. He presently offers no acute medical complaints Review of Systems 2 Review of Systems: Gen: no fever Resp: no sob, no cough CV: no chest, no FREEMAN, no leg edema GI: No n/v, no abd pain Neuro: No confusion No SI, No HI Yes all other systems are reviewed and are negative [facility] Medical History Opioid use disorder Schizophrenia Social History Household Members: Other Household Members Other:: correction Housing: Other Housing Other:: correction Patient Tobacco Use Status: Current everyday Tobacco user Tobacco use type: Cigarette Smoked in Last 30 Days: Yes Patient Interested in Nicotine Replacement: No Patient Given Instructions on How to Stop Smoking: No (declined) Use of substances other than those prescribed or required for medical reasons: No Currently Displaying Signs/Symptoms of Drug Intoxication Withdrawal: No Have you been hit, kicked, punched, or otherwise hurt by someone within the past year? If so, by whom?: No Do you feel safe in your current relationship?: No Current Relationship Is there a partner from a previous relationship who is making you feel unsafe now?: No Are you made to feel afraid or neglected: No Advance Directives: No Advance Directives Information Provided: Yes Do you have thoughts of harming others: None Do you have a plan to hurt others: No Plan Recently lost weight without trying: Unsure Eating poorly because of decreased appetite: No Nutrition Risks: No Nutritional Risk service: No Sexual orientation: Don't Know Meds Allergies Allergy/AdvReac Type Severity Reaction Status Date / Time clonidine Allergy Unknown Verified 10/16/24 12:46 melatonin Allergy Unknown Verified 10/16/24 12:46 quetiapine Allergy Unknown Verified 10/16/24 12:46 clonidine Allergy Unknown Uncoded 10/16/24 12:47 Active Medications: Current Medications Acetaminophen (Acetaminophen 325 Mg Tablet) 650 mg PO Q6H PRN PRN Reason: Headache/Pain Mild Scale (1-3) Last Admin: 10/16/24 10:26 Dose: 650 mg Al Hydroxide/Mg Hydroxide (Magnesium Hydrox/Alum Hydrox 30 Ml Oral.Susp) 30 ml PO Q6H PRN PRN Reason: Heartburn/Nausea Albuterol Sulfate (Albuterol Sulfate 90 Mcg 8 Gm Inhaler) 1 puff INHALE Q6H PRN PRN Reason: wheezing Benztropine Mesylate (Benztropine Mesylate 1 Mg Tablet) 1 mg PO BID [facility] Last Admin: 10/16/24 09:18 Dose: Not Given Hydroxyzine HCl (Hydroxyzine Hcl 25 Mg Tablet) 25 mg PO Q6H PRN PRN Reason: Anxiety Last Admin: 10/16/24 10:28 Dose: 25 mg Magnesium Hydroxide (Milk Of Magnesia 30 Ml Oral.Susp) 30 ml PO DAILY PRN PRN Reason: Constipation Nicotine Polacrilex (Nicotine Polacrilex 2 Mg Gum) 2 mg BUCCAL Q2H PRN PRN Reason: Nicotine Cravings Olanzapine (Olanzapine 5 Mg Tablet) 5 mg PO BID PRN PRN Reason: anxiety/restlessness Risperidone (Risperidone 2 Mg Tablet) 2 mg PO BEDTIME [facility] Risperidone (Risperidone 1 Mg Tablet) 1 mg PO DAILY [facility] Last Admin: 10/16/24 09:18 Dose: Not Given Trazodone HCl (Trazodone Hcl 50 Mg Tablet) 50 mg PO BEDTIME MRX1 PRN PRN Reason: Insomnia Vitamin D (Cholecalciferol (Vitamin D3) 25 Mcg Tablet) 25 mcg PO DAILY [facility] Last Admin: 10/16/24 09:18 Dose: Not Given Home Medications ?Medication ?Instructions ?Recorded ?Confirmed ?Last Taken ?Type albuterol sulfate 90 mcg/actuation 1 puff inhalation Q6H PRN wheezing 10/16/24 10/16/24 Unknown History aerosol inhaler cholecalciferol (vitamin D3) 25 25 mcg DAILY 10/16/24 10/16/24 Unknown History mcg (1,000 unit) tablet melatonin 5 mg tablet 5 mg PO BEDTIME 10/16/24 10/16/24 Unknown History risperidone 1 mg tablet 1 mg PO DAILY 10/16/24 10/16/24 Unknown History risperidone 2 mg tablet 2 mg PO BEDTIME 10/16/24 10/16/24 Unknown History risperidone 3 mg tablet (Risperdal) 2 mg PO BEDTIME 10/16/24 Unknown History trazodone 50 mg tablet 50 mg PO BEDTIME 10/16/24 10/16/24 Unknown History Physical Exam 2 Vital Signs and Narrative: Vital Signs: Last Vital Signs Temp 98.5 F 10/16/24 09:18 Pulse 77 10/16/24 09:18 Resp 18 10/16/24 09:18 BP 137/76 10/16/24 09:18 Pulse Ox 99 10/16/24 09:18 O2 Del Method Room Air 10/16/24 09:18 BMI result Body Mass Index 21.1 Const: Other: Constitutional: Alert, in no distress, Mental Status: Oriented to person, place and time. Ear, Nose and Throat: Oropharynx clear, mucous membranes moist. Ears and nose without deformities. Respiratory: Clear to auscultation. No wheezing, rales or rhonchi. Cardiovascular: S1 S2 regular. No murmurs, rubs or gallops. Gastrointestinal: Abdomen soft, non-tender, non-distended. Normal bowel sounds.? Neurologic: Cranial nerves II-XII grossly intact. No focal neurological deficits. Moves all extremities spontaneously.? Skin: No rashes or lesions.? Musculoskeletal: No cyanosis or clubbing. Psychiatric: Normal mood and affect? Results Labs 10/16/24 08:36 Labs: Laboratory Results - last 24 hr 10/16/24 08:36 Anion Gap 9 L Estim Creat Clear Calc 92.1 Estimated GFR > 60 Random Glucose 156 H Calcium 9.4 D Total Bilirubin 0.4 AST 163 H ALT 264 H Alkaline Phosphatase 230 H Total Protein 7.7 Albumin 3.8 Assessment and Plan (1) Schizophrenia: Status: Acute (2) Opioid use disorder: Status: Acute (3) Elevated LFTs: Status: Acute Plan 59/m with schizophrenia admitted to Psych d/t decompensated schizophrenia, has chronically elevated LFTs, random glucose > 150, -continue present care -check hgb A1 C -consider hep b, c If ECT is needed, get routine ECG and uless abnormal, no further testing would be needed
[2024-10-16] MEDS: OLANZapine 5 MG TABLET PO (13:43)
[2024-10-16 16:05] LABS: Estimated Average Glucose 120 mg/dL; Hemoglobin A1C 140.5994 umol/L; Hemoglobin A1c % 5.8 % (<6.0); Total Hemoglobin (HGBA1C) 3543.1113 umol/L
[2024-10-16 20:00] VITALS: RESP 14
[2024-10-17 08:00] VITALS: RESP 18
[2024-10-17] MEDS: Milk of Magnesia 30 ML ORAL.SUSP PO (10:08)
--- NOTE | 2024-10-17 10:47 | HO.PSYCHPN ---
Subjective Subjective Date of Service: 10/17/24 Reason For Visit: Unspecified Schizophrenia Spectrum and other Psych Subjective Notes: Section 12B Interim History: Patient was seen and discussed in rounds today. Records and plans were reviewed. He refused the Risperdal but agreed to take Zyprexa yesterday and he actually likes the benefits. I ordered 5 mg b.i.d. for now. We have not received his Dyer papers. Eating and sleeping adequately. Hygiene has improved. No other changes were made Review of Systems Review of Systems Yes all other systems are reviewed and are negative Mental Status Exam Mental Status Exam Narrative: In today's visit he is alert, oriented to place and person and some to time. Speech is hard to understand. No eye contact. Affect is contained. No acute signs of psychosis. Cognitively he is grossly intact. No SI. Denies any AVH. Judgment is marginal. Diagnostics Vital Signs (24Hr): Vital Signs - 24 hr 10/16/24 20:00 10/17/24 08:00 Respiratory Rate 14 18 BMI result Body Mass Index 21.1 Labs 10/16/24 08:36 Labs: Laboratory Results - last 48 hr 10/16/24 10/16/24 08:36 15:26 Sodium 136 Potassium 5.0 Chloride 104 Carbon Dioxide 28 Anion Gap 9 L BUN 16 Creatinine 0.78 Estim Creat Clear Calc 92.1 Estimated GFR > 60 Random Glucose 156 H Estimat Average Glucose 120 Hemoglobin A1c % 5.8 Calcium 9.4 D Total Bilirubin 0.4 AST 163 H ALT 264 H Alkaline Phosphatase 230 H Total Protein 7.7 Albumin 3.8 Medications Medications Current Medications Acetaminophen (Acetaminophen 325 Mg Tablet) 650 mg PO Q6H PRN PRN Reason: Headache/Pain Mild Scale (1-3) Last Admin: 10/16/24 17:03 Dose: 650 mg Al Hydroxide/Mg Hydroxide (Magnesium Hydrox/Alum Hydrox 30 Ml Oral.Susp) 30 ml PO Q6H PRN PRN Reason: Heartburn/Nausea Albuterol Sulfate (Albuterol Sulfate 90 Mcg 8 Gm Inhaler) 1 puff INHALE Q6H PRN PRN Reason: wheezing Benztropine Mesylate (Benztropine Mesylate 1 Mg Tablet) 1 mg PO BID DEV Last Admin: 10/17/24 09:21 Dose: Not Given Hydroxyzine HCl (Hydroxyzine Hcl 25 Mg Tablet) 25 mg PO Q6H PRN PRN Reason: Anxiety Last Admin: 10/16/24 10:28 Dose: 25 mg Magnesium Hydroxide (Milk Of Magnesia 30 Ml Oral.Susp) 30 ml PO DAILY PRN PRN Reason: Constipation Last Admin: 10/17/24 10:08 Dose: 30 ml Nicotine Polacrilex (Nicotine Polacrilex 2 Mg Gum) 2 mg BUCCAL Q2H PRN PRN Reason: Nicotine Cravings Olanzapine (Olanzapine 5 Mg Tablet) 5 mg PO BID PRN PRN Reason: anxiety/restlessness Last Admin: 10/16/24 13:43 Dose: 5 mg Risperidone (Risperidone 2 Mg Tablet) 2 mg PO BEDTIME DEV Last Admin: 10/16/24 22:18 Dose: Not Given Risperidone (Risperidone 1 Mg Tablet) 1 mg PO DAILY [facility] Last Admin: 10/17/24 09:21 Dose: Not Given Trazodone HCl (Trazodone Hcl 50 Mg Tablet) 50 mg PO BEDTIME MRX1 PRN PRN Reason: Insomnia Vitamin D (Cholecalciferol (Vitamin D3) 25 Mcg Tablet) 25 mcg PO DAILY [facility] Last Admin: 10/17/24 09:21 Dose: Not Given Allergies Allergies Allergy/AdvReac Type Severity Reaction Status Date / Time clonidine Allergy Unknown Verified 10/16/24 12:46 melatonin Allergy Unknown Verified 10/16/24 12:46 quetiapine Allergy Unknown Verified 10/16/24 12:46 clonidine Allergy Unknown Uncoded 10/16/24 12:47 Assessment & Plan Assessment & Plan (1) Schizophrenia: Status: Acute Code(s): F20.9 - Schizophrenia, unspecified (2) Opioid use disorder: Status: Acute Code(s): F11.90 - Opioid use, unspecified, uncomplicated (3) Elevated LFTs: Status: Acute Code(s): R79.89 - Other specified abnormal findings of blood chemistry Plan 59/m with schizophrenia admitted to Psych d/t decompensated schizophrenia, has chronically elevated LFTs, random glucose > 150, -continue present care -check hgb A1 C -consider hep b, c If ECT is needed, get routine ECG and uless abnormal, no further testing would be needed 10/17/2024: Continue current regimen and plans. Added Zyprexa 5 mg b.i.d. Patient educated on: medication risk/benefits Reason for continued inpatient stay Substantial Risk for: med/psych decompensation Time Spent With Patient Time: Total time managing care of this patient today ____ minutes.
[2024-10-18 08:00] VITALS: RESP 18
[2024-10-18 08:10] LABS: HBS Num1 79.58 mIU/mL (0-7.99); HBc Num1 3.58 S/CO (0.00-0.79); HBsAGNum1 0.39 S/CO (0.00-0.99); Hepatitis B Surface Antigen Negative (Negative); ~HepC Num1 8.46 S/CO (0.00-0.79); ~Hepatitis B Surface Antibody REACTIVE (Nonreactive); ~Hepatitis C Antibody Reactive (Nonreactive)
[2024-10-18 10:18] LABS: HBc Num2 3.44 S/CO; HBc Num3 3.45 S/CO; Hepatitis B Core Antibody Reactive (Nonreactive)
[2024-10-18] MEDS: Acetaminophen 325 MG TABLET 650 MG PO (14:35)
--- NOTE | 2024-10-18 17:55 | HO.PSYCHPN ---
Subjective Subjective Date of Service: 10/18/24 Reason For Visit: Unspecified Schizophrenia Spectrum and other Psych Subjective Notes: [place] Warning and Section 12B Interim History: Met with patient; discussed with team; reviewed chart Patient guarded with much of staff. Pacing up and down the rankin, talking to himself, intense, mumbling out loud and yelled I am going to kill [that] person... With underwriter solicitation director, patient is calm, guarded but cooperative and polite (though intermittently whispering to himself under his breath); patient denied that anything unusual happened at the correction. He said nothing out of the ordinary happened... He explained he had concerns that something was being tampered with but patient would not tell underwriter solicitation director what it was. Because of this he called 911. Patient denies any SI or HI or AVH. He acknowledges that a Dyer order exists however he says he does not think it is necessary or that he needs medication. Patient tells underwriter solicitation director that back in 2007 he purposely lied to a psychiatrist, saying he had psychotic symptoms, in order to get disability/social security. He says thus he is currently misdiagnosed and does not have any psychotic illness. Patient says he does not plan to go back to the correction. And that he is fine with living in a penitentiary Mental Status Exam Mental Status Exam Narrative: Pt is alert and oriented; behavior is intermittently agitated and irritable; guarded but can also be cooperative, polite and calm; patient is not in distress; dressed in casual attire, disheveled; mood is described as fine and affect congruent; eye contact appropriate; Speech is normal rate, volume and prosody and not pressured; intermittent psychomotor agitation present; thought process is organized and goal directed; Thought content is on discharge and that he has been erroneously diagnosed with a psychotic illness; otherwise pertinent to relevant topics; recent reports of delusional, paranoid ideation; denies any SI/HI. Denies AVH however patient intermittently whispering to himself under his breath; Patients insight and judgment impaired Diagnostics Vital Signs (24Hr): Vital Signs - 24 hr 10/18/24 08:00 Respiratory Rate 18 BMI result Body Mass Index 21.1 Labs 10/16/24 08:36 Labs: Laboratory Results - last 48 hr 10/16/24 15:26 Hep Bs Antigen Negative Hep Bs Antibody REACTIVE Hep B Core Total Ab Reactive Hep B Core IgM Ab Cancelled Hepatitis C Ab (EIA) Reactive H Medications Medications Current Medications Acetaminophen (Acetaminophen 325 Mg Tablet) 650 mg PO Q6H PRN PRN Reason: Headache/Pain Mild Scale (1-3) Last Admin: 10/18/24 14:35 Dose: 650 mg Al Hydroxide/Mg Hydroxide (Magnesium Hydrox/Alum Hydrox 30 Ml Oral.Susp) 30 ml PO Q6H PRN PRN Reason: Heartburn/Nausea Albuterol Sulfate (Albuterol Sulfate 90 Mcg 8 Gm Inhaler) 1 puff INHALE Q6H PRN PRN Reason: wheezing Benztropine Mesylate (Benztropine Mesylate 1 Mg Tablet) 1 mg PO BID [facility] Last Admin: 10/18/24 11:17 Dose: Not Given Hydroxyzine HCl (Hydroxyzine Hcl 25 Mg Tablet) 25 mg PO Q6H PRN PRN Reason: Anxiety Last Admin: 10/16/24 10:28 Dose: 25 mg Lidocaine (Lidocaine 4 % Patch Adh..Patch) 1 patch TRANSDERMA DAILY PRN; Protocol PRN Reason: back pain Magnesium Hydroxide (Milk Of Magnesia 30 Ml Oral.Susp) 30 ml PO DAILY PRN PRN Reason: Constipation Last Admin: 10/17/24 10:08 Dose: 30 ml Nicotine Polacrilex (Nicotine Polacrilex 2 Mg Gum) 2 mg BUCCAL Q2H PRN PRN Reason: Nicotine Cravings Olanzapine (Olanzapine 5 Mg Tablet) 5 mg PO BID [facility] Last Admin: 10/18/24 11:17 Dose: Not Given Risperidone (Risperidone 2 Mg Tablet) 2 mg PO BEDTIME [facility] Last Admin: 10/17/24 21:55 Dose: Not Given Risperidone (Risperidone 1 Mg Tablet) 1 mg PO DAILY [facility] Last Admin: 10/18/24 11:17 Dose: Not Given Trazodone HCl (Trazodone Hcl 50 Mg Tablet) 50 mg PO BEDTIME MRX1 PRN PRN Reason: Insomnia Vitamin D (Cholecalciferol (Vitamin D3) 25 Mcg Tablet) 25 mcg PO DAILY [facility] Last Admin: 10/18/24 11:17 Dose: Not Given Allergies Allergies Allergy/AdvReac Type Severity Reaction Status Date / Time clonidine Allergy Unknown Verified 10/16/24 12:46 melatonin Allergy Unknown Verified 10/16/24 12:46 quetiapine Allergy Unknown Verified 10/16/24 12:46 clonidine Allergy Unknown Uncoded 10/16/24 12:47 Assessment & Plan Assessment & Plan (1) Schizophrenia: Status: Acute Code(s): F20.9 - Schizophrenia, unspecified (2) Opioid use disorder: Status: Acute Code(s): F11.90 - Opioid use, unspecified, uncomplicated (3) Elevated LFTs: Status: Acute Code(s): R79.89 - Other specified abnormal findings of blood chemistry Plan 59/m with schizophrenia on a community Dyer, living in a correction who presents to the ED after he himself called 911; correction reports patient has decompensated and has been acting erratically. -has chronically elevated LFTs, random glucose > 150, Hospital course: If ECT is needed, get routine ECG and uless abnormal, no further testing would be needed 10/17/2024: Continue current regimen and plans. Added Zyprexa 5 mg b.i.d. 10/18 Patient guarded with much of staff. Pacing up and down the rankin, talking to himself, intense, mumbling out loud and yelled I am going to kill [that] person... With underwriter solicitation director, patient is calm, guarded but cooperative and polite (though intermittently whispering to himself under his breath); patient denied that anything unusual happened at the correction. He said nothing out of the ordinary happened... He explained he had concerns that something was being tampered with but patient would not tell underwriter solicitation director what it was. Because of this he called 911. Patient denies any SI or HI or AVH. He acknowledges that a Dyer order exists however he says he does not think it is necessary or that he needs medication. Patient tells underwriter solicitation director that back in 2007 he purposely lied to a psychiatrist, saying he had psychotic symptoms, in order to get disability/social security. He says thus he is currently misdiagnosed and does not have any psychotic illness. Patient says he does not plan to go back to the correction. And that he is fine with living in a penitentiary -has been thus far refusing medication Plan: Section 12 B Q 15 minute checks Patient refusing medication Patient has a community Dyer order; will obtain [employer] collateral Level 3 sex offender -continue present care -check hgb A1 C -consider hep b, c Patient educated on: diagnosis and medication risk/benefits Informed Consent: does not understand Reason for continued inpatient stay Substantial Risk for: rapid decompensation Time Spent With Patient Time: Total time managing care of this patient today ____ minutes.
[2024-10-18] MEDS: traZODone HCL 50 MG TABLET PO (20:50)
[2024-10-19] MEDS: Paliperidone Palmitate 234 MG/1.5 ML SYRINGE IM (14:18)
--- NOTE | 2024-10-19 15:05 | P.PNPSI_ITS ---
Subjective Subjective Date of Service: 10/19/24 Reason For Visit: Unspecified Schizophrenia Spectrum and other Psych Interim History: Met with patient; discussed with team; Sw discussed case with guardian (who gave permission to talk w/ nursing home) and with nursing home staff who report that patient stopped taking medications around May 2024; he returned from substance abuse program this September, continuing to refuse meds. Since back he's been having intermittent outbursts of yelling and kicking or banging on the door, unsettling and scaring residents. He's been pacing much of the time. This past week he called 911 saying there were people in the basement and attic; police brought pt to hospital. senior care staff, Manuel, reported that on medication patient is calm, polite, gets along well with others. Application Release Manager and social science analyst discussed this with patient who said this was all lies, that he never called the police and said that. Patient reiterated that it is a false diagnosis however he accepted that medication is court ordered and received Invega Sustenna without problem Mental Status Exam Mental Status Exam Narrative: Pt is alert and oriented; behavior is more calm though can be demanding; guarded but can also be cooperative; patient is not in distress; dressed in casual attire, disheveled, poor dentition; mood is described as fine and affect congruent; eye contact appropriate; Speech is normal rate, volume and prosody and not pressured; intermittent psychomotor agitation present; thought process is organized and goal directed; Thought content is on discharge and that he has been erroneously diagnosed with a psychotic illness; otherwise pertinent to relevant topics; recent reports of delusional, paranoid ideation; denies any SI/HI. Denies AVH however patient intermittently whispering to himself under his breath; Patients insight and judgment impaired Diagnostics Vital Signs (24Hr): BMI result Body Mass Index 21.1 Labs 10/16/24 08:36 Labs: Laboratory Results - last 48 hr 10/16/24 15:26 Hep Bs Antigen Negative Hep Bs Antibody REACTIVE Hep B Core Total Ab Reactive Hep B Core IgM Ab Cancelled Hepatitis C Ab (EIA) Reactive H Medications Medications Current Medications Acetaminophen (Acetaminophen 325 Mg Tablet) 650 mg PO Q6H PRN PRN Reason: Headache/Pain Mild Scale (1-3) Last Admin: 01/20/25 14:35 Dose: 650 mg Al Hydroxide/Mg Hydroxide (Magnesium Hydrox/Alum Hydrox 30 Ml Oral.Susp) 30 ml PO Q6H PRN PRN Reason: Heartburn/Nausea Albuterol Sulfate (Albuterol Sulfate 90 Mcg 8 Gm Inhaler) 1 puff INHALE Q6H PRN PRN Reason: wheezing Benztropine Mesylate (Benztropine Mesylate 1 Mg Tablet) 1 mg PO BID [facility] Last Admin: 10/19/24 08:25 Dose: Not Given Hydroxyzine HCl (Hydroxyzine Hcl 25 Mg Tablet) 25 mg PO Q6H PRN PRN Reason: Anxiety Last Admin: 10/16/24 10:28 Dose: 25 mg Lidocaine (Lidocaine 4 % Patch Adh..Patch) 1 patch TRANSDERMA DAILY PRN; Protocol PRN Reason: back pain Magnesium Hydroxide (Milk Of Magnesia 30 Ml Oral.Susp) 30 ml PO DAILY PRN PRN Reason: Constipation Last Admin: 10/17/24 10:08 Dose: 30 ml Nicotine Polacrilex (Nicotine Polacrilex 2 Mg Gum) 2 mg BUCCAL Q2H PRN PRN Reason: Nicotine Cravings Olanzapine (Olanzapine 5 Mg Tablet) 5 mg PO BID [facility] Last Admin: 10/19/24 08:25 Dose: Not Given Paliperidone Palmitate (Paliperidone Palmitate 234 Mg/1.5 Ml Syringe) 234 mg IM Q30D [facility] Last Admin: 10/19/24 14:18 Dose: 234 mg Risperidone (Risperidone 2 Mg Tablet) 2 mg PO BEDTIME [facility] Last Admin: 10/18/24 20:48 Dose: Not Given Risperidone (Risperidone 1 Mg Tablet) 1 mg PO DAILY [facility] Last Admin: 10/19/24 08:25 Dose: Not Given Tramadol HCl (Tramadol Hcl 50 Mg Tablet) 25 mg PO BID PRN PRN Reason: severe pain Trazodone HCl (Trazodone Hcl 50 Mg Tablet) 50 mg PO BEDTIME MRX1 PRN PRN Reason: Insomnia Last Admin: 10/18/24 20:50 Dose: 50 mg Vitamin D (Cholecalciferol (Vitamin D3) 25 Mcg Tablet) 25 mcg PO DAILY [facility] Last Admin: 10/19/24 08:25 Dose: Not Given Allergies Allergies Allergy/AdvReac Type Severity Reaction Status Date / Time clonidine Allergy Unknown Verified 10/16/24 12:46 melatonin Allergy Unknown Verified 10/16/24 12:46 quetiapine Allergy Unknown Verified 10/16/24 12:46 clonidine Allergy Unknown Uncoded 10/16/24 12:47 Assessment & Plan Assessment & Plan (1) Schizophrenia: Status: Acute Code(s): F20.9 - Schizophrenia, unspecified (2) Opioid use disorder: Status: Acute Code(s): F11.90 - Opioid use, unspecified, uncomplicated (3) Elevated LFTs: Status: Acute Code(s): R79.89 - Other specified abnormal findings of blood chemistry Plan 59/m with schizophrenia on a community Dyer, living in a nursing home who presents to the ED after he himself called 911; nursing home reports patient has decompensated and has been acting erratically. -has chronically elevated LFTs, random glucose > 150, Hospital course: If ECT is needed, get routine ECG and uless abnormal, no further testing would be needed 10/17/2024: Continue current regimen and plans. Added Zyprexa 5 mg b.i.d. 10/18 Patient guarded with much of staff. Pacing up and down the rankin, talking to himself, intense, mumbling out loud and yelled I am going to kill [that] person... With principal technical writer, patient is calm, guarded but cooperative and polite (though intermittently whispering to himself under his breath); patient denied that anything unusual happened at the nursing home. He said nothing out of the ordinary happened... He explained he had concerns that something was being tampered with but patient would not tell principal technical writer what it was. Because of this he called 911. Patient denies any SI or HI or AVH. He acknowledges that a Dyer order exists however he says he does not think it is necessary or that he needs medication. Patient tells principal technical writer that back in 2007 he purposely lied to a psychiatrist, saying he had psychotic symptoms, in order to get disability/social security. He says thus he is currently misdiagnosed and does not have any psychotic illness. Patient says he does not plan to go back to the nursing home. And that he is fine with living in a [facility] -has been thus far refusing medication 10/19 Sw discussed case with guardian (who gave permission to talk w/ nursing home) and with nursing home staff who report that patient stopped taking medications around May 2024; he returned from substance abuse program this September, continuing to refuse meds. Since back he's been having intermittent outbursts of yelling and kicking or banging on the door, unsettling and scaring residents. He's been pacing much of the time. This past week he called 911 saying there were people in the basement and attic; police brought pt to hospital. senior care staff, Manuel, reported that on medication patient is calm, polite, gets along well with others. -Application Release Manager and social science analyst discussed this with patient who said this was all lies, that he never called the police and said that. Patient reiterated that it is a false diagnosis however he accepted that medication is court ordered [facility] -for medication to be effective patient requires 2nd loading dose of 156 mg within the next 5-7 days; 12 B is due on and patient is very unlikely to get follow-up injection; will consider how to best proceed Plan: Section 12 B Q 15 minute checks Patient has a community Dyer order; primary treatment Invega [facility]ustjustice Gather collateral Level 3 sex offender -continue present care -check hgb A1 C -consider hep b, c Patient educated on: diagnosis and medication risk/benefits Informed Consent: understands, does not understand and further education needed Reason for continued inpatient stay Substantial Risk for: rapid decompensation Time Spent With Patient Time: Total time managing care of this patient today ____ minutes.
--- NOTE | 2024-10-20 05:13 | PC.NURSE ---
Patient declined to take any HS medications. He also refused any prn meds.
[2024-10-20 08:00] VITALS: RESP 16
--- NOTE | 2024-10-20 10:00 | P.PNPSI_ITS ---
Subjective Subjective Date of Service: 10/20/24 Reason For Visit: Unspecified Schizophrenia Spectrum and other Psych Interim History: met with patient; discussed with team Discussed treatment with patient; patient continues to deny any psychiatric symptoms, paranoid delusions or history of AH at all. He also says he has not go back to the penitentiary and does not care if he has been banned from several shelters in the community, he will figure something out on his own. Marine Firer discussed that he has a guardian and court-ordered medication and although patient continued to challenge these ideas, consented to remain in the hospital, signed a CV and get his next installment of Invega Sustenna as long as he was able to discharge this Friday, something with which story writer agreed. Throughout these discussions patient would break off and start whispering to himself. Mental Status Exam Mental Status Exam Narrative: Pt is alert and oriented; behavior is more calm, overall organized; mostly keeps to himself but also out in the milieu; guarded but not un-cooperative; patient is not in distress; dressed in casual attire, disheveled, poor dentition; mood is described as fine and affect congruent; eye contact appropriate; Speech is normal rate, volume and prosody and not pressured; intermittent psychomotor agitation present; thought process is organized and goal directed; Thought content is on discharge and that he has been erroneously diagnosed with a psychotic illness; otherwise pertinent to relevant topics; recent reports of delusional, paranoid ideation; denies any SI/HI. Denies AVH however patient intermittently whispering to himself under his breath; Patients insight and judgment impaired. Diagnostics Vital Signs (24Hr): Vital Signs - 24 hr 10/20/24 08:00 Respiratory Rate 16 BMI result Body Mass Index 21.1 Labs 10/16/24 08:36 Labs: Laboratory Results - last 48 hr 10/16/24 15:26 Hep B Core Total Ab Reactive Hep B Core IgM Ab Cancelled Medications Medications Current Medications Acetaminophen (Acetaminophen 325 Mg Tablet) 650 mg PO Q6H PRN PRN Reason: Headache/Pain Mild Scale (1-3) Last Admin: 10/18/24 14:35 Dose: 650 mg Al Hydroxide/Mg Hydroxide (Magnesium Hydrox/Alum Hydrox 30 Ml Oral.Susp) 30 ml PO Q6H PRN PRN Reason: Heartburn/Nausea Albuterol Sulfate (Albuterol Sulfate 90 Mcg 8 Gm Inhaler) 1 puff INHALE Q6H PRN PRN Reason: wheezing Benztropine Mesylate (Benztropine Mesylate 1 Mg Tablet) 1 mg PO BID PRN PRN Reason: EPS Hydroxyzine HCl (Hydroxyzine Hcl 25 Mg Tablet) 25 mg PO Q6H PRN PRN Reason: Anxiety Last Admin: 10/16/24 10:28 Dose: 25 mg Lidocaine (Lidocaine 4 % Patch Adh..Patch) 1 patch TRANSDERMA DAILY PRN; Protocol PRN Reason: back pain Magnesium Hydroxide (Milk Of Magnesia 30 Ml Oral.Susp) 30 ml PO DAILY PRN PRN Reason: Constipation Last Admin: 10/17/24 10:08 Dose: 30 ml Nicotine Polacrilex (Nicotine Polacrilex 2 Mg Gum) 2 mg BUCCAL Q2H PRN PRN Reason: Nicotine Cravings Olanzapine (Olanzapine 5 Mg Tablet) 5 mg PO TID PRN PRN Reason: Anxiety/Restlessness Paliperidone Palmitate (Paliperidone Palmitate 234 Mg/1.5 Ml Syringe) 234 mg IM Q30D [facility] Last Admin: 10/19/24 14:18 Dose: 234 mg Tramadol HCl (Tramadol Hcl 50 Mg Tablet) 25 mg PO BID PRN PRN Reason: severe pain Trazodone HCl (Trazodone Hcl 50 Mg Tablet) 50 mg PO BEDTIME MRX1 PRN PRN Reason: Insomnia Last Admin: 10/18/24 20:50 Dose: 50 mg Vitamin D (Cholecalciferol (Vitamin D3) 25 Mcg Tablet) 25 mcg PO DAILY [facility] Last Admin: 10/20/24 08:55 Dose: Not Given Allergies Allergies Allergy/AdvReac Type Severity Reaction Status Date / Time clonidine Allergy Unknown Verified 10/16/24 12:46 melatonin Allergy Unknown Verified 10/16/24 12:46 quetiapine Allergy Unknown Verified 10/16/24 12:46 clonidine Allergy Unknown Uncoded 10/16/24 12:47 Assessment & Plan Assessment & Plan (1) Schizophrenia: Status: Acute Code(s): F20.9 - Schizophrenia, unspecified (2) Opioid use disorder: Status: Acute Code(s): F11.90 - Opioid use, unspecified, uncomplicated (3) Elevated LFTs: Status: Acute Code(s): R79.89 - Other specified abnormal findings of blood chemistry Plan 59/m with schizophrenia on a community Yder, living in a pen[facility] who presents to the ED after he himself called 911; penitentiary reports patient has decompensated and has been acting erratically. -has chronically elevated LFTs, random glucose > 150, Hospital course: If ECT is needed, get routine ECG and uless abnormal, no further testing would be needed 10/17/2024: Continue current regimen and plans. Added Zyprexa 5 mg b.i.d. 10/18 Patient guarded with much of staff. Pacing up and down the rankin, talking to himself, intense, mumbling out loud and yelled I am going to kill [that] person... With story writer, patient is calm, guarded but cooperative and polite (though intermittently whispering to himself under his breath); patient denied that anything unusual happened at the penitentiary. He said nothing out of the ordinary happened... He explained he had concerns that something was being tampered with but patient would not tell story writer what it was. Because of this he called 911. Patient denies any SI or HI or AVH. He acknowledges that a Dyer order exists however he says he does not think it is necessary or that he needs medication. Patient tells story writer that back in 2007 he purposely lied to a psychiatrist, saying he had psychotic symptoms, in order to get disability/social security. He says thus he is currently misdiagnosed and does not have any psychotic illness. Patient says he does not plan to go back to the penitentiary. And that he is fine with living in a skilled nursing -has been thus far refusing medication 10/19 Sw discussed case with guardian (who gave permission to talk w/ penitentiary) and with penitentiary staff who report that patient stopped taking medications around May 2024; he returned from substance abuse program this September, continuing to refuse meds. Since back he's been having intermittent outbursts of yelling and kicking or banging on the door, unsettling and scaring residents. He's been pacing much of the time. This past week he called 911 saying there were people in the basement and attic; police brought pt to hospital. [facility] staff, Manuel, reported that on medication patient is calm, polite, gets along well with others. -Marine Firer and sr. social media & mobile manager discussed this with patient who said this was all lies, that he never called the police and said that. Patient reiterated that it is a false diagnosis however he accepted that medication is court ordered and received Invega Sustenna without problem -for medication to be effective patient requires 2nd loading dose of 156 mg within the next 5-7 days; 12 B is due on and patient is very unlikely to get follow-up injection; will consider how to best proceed 10/20 Discussed treatment with patient; patient continues to deny any psychiatric symptoms, paranoid delusions or history of AH at all. He also says he has not go back to the penitentiary and does not care if he has been banned from several shelters in the community, he will figure something out on his own. Marine Firer discussed that he has a guardian and court-ordered medication and although patient continued to challenge these ideas, consented to remain in the hospital, signed a CV and get his next installment of Invega Sustenna as long as he was able to discharge this Friday, something with which story writer agreed. Throughout these discussions patient would break off and start whispering to himself. Marine Firer finds it necessary for patient to adhere with his court-ordered medication; his treatment team in the community appealed to a gas operations analyst who after hearing the evidence, mandated treatment with antipsychotic medication;. Patient has mostly remained in good behavioral and impulse control throughout his time in the unit and is organized in speech behavior; however story writer agrees that antipsychotic medication remains a necessary component of patient's stability given his history, recent paranoid delusions, current internal preoccupation, erratic behavior at the penitentiary which was unsettling to peers and history/categorization as a level 3 sex offender. -patient's guardian discussed case with sr. social media & mobile manager and strongly requested patient returned back to penitentiary on discharge. While story writer agrees that this is ideal, it seems that this is ultimately up to the patient himself. Plan: cv; then 3 day notice Q 15 minute checks Received Invega Sustenna 234 mg on 10/19 Patient wants discharge; story writer agrees to give Invega Sustenna 156 mg, next loading dose on 10/22 Gather collateral Level 3 sex offender -continue present care -check hgb A1 C -consider hep b, c Patient educated on: diagnosis, medication risk/benefits and therapeutic strategies Informed Consent: understands, does not understand and further education needed Reason for continued inpatient stay Substantial Risk for: rapid decompensation Time Spent With Patient Time: Total time managing care of this patient today ____ minutes.
[2024-10-20] MEDS: traMADoL HCL 50 MG TABLET 25 MG PO ×2 (17:13→23:30)
[2024-10-20] MEDS: OLANZapine 5 MG TABLET PO (17:25)
[2024-10-21] MEDS: OLANZapine 5 MG TABLET PO (08:46)
--- NOTE | 2024-10-21 14:53 | P.PNPSI_ITS ---
Subjective Subjective Date of Service: 10/21/24 Reason For Visit: Unspecified Schizophrenia Spectrum and other Psych Interim History: met with patient; discussed withe team Diagnostics Vital Signs (24Hr): BMI result Body Mass Index 21.1 Labs 10/16/24 08:36 Medications Medications Current Medications Acetaminophen (Acetaminophen 325 Mg Tablet) 650 mg PO Q6H PRN PRN Reason: Headache/Pain Mild Scale (1-3) Last Admin: 10/18/24 14:35 Dose: 650 mg Al Hydroxide/Mg Hydroxide (Magnesium Hydrox/Alum Hydrox 30 Ml Oral.Susp) 30 ml PO Q6H PRN PRN Reason: Heartburn/Nausea Albuterol Sulfate (Albuterol Sulfate 90 Mcg 8 Gm Inhaler) 1 puff INHALE Q6H PRN PRN Reason: wheezing Benztropine Mesylate (Benztropine Mesylate 1 Mg Tablet) 1 mg PO BID PRN PRN Reason: EPS Hydroxyzine HCl (Hydroxyzine Hcl 25 Mg Tablet) 25 mg PO Q6H PRN PRN Reason: Anxiety Last Admin: 10/16/24 10:28 Dose: 25 mg Lidocaine (Lidocaine 4 % Patch Adh..Patch) 1 patch TRANSDERMA DAILY PRN; Protocol PRN Reason: back pain Magnesium Hydroxide (Milk Of Magnesia 30 Ml Oral.Susp) 30 ml PO DAILY PRN PRN Reason: Constipation Last Admin: 10/17/24 10:08 Dose: 30 ml Nicotine Polacrilex (Nicotine Polacrilex 2 Mg Gum) 2 mg BUCCAL Q2H PRN PRN Reason: Nicotine Cravings Olanzapine (Olanzapine 5 Mg Tablet) 5 mg PO TID PRN PRN Reason: Anxiety/Restlessness Last Admin: 10/21/24 08:46 Dose: 5 mg Paliperidone Palmitate (Paliperidone Palmitate 234 Mg/1.5 Ml Syringe) 234 mg IM Q30D DEV Last Admin: 10/19/24 14:18 Dose: 234 mg Paliperidone Palmitate (Paliperidone Palmitate 156 Mg/Ml Syringe) 156 mg IM ONCE ONE Stop: 10/22/24 09:01 Tramadol HCl (Tramadol Hcl 50 Mg Tablet) 25 mg PO BID PRN PRN Reason: severe pain Last Admin: 10/20/24 23:30 Dose: 25 mg Trazodone HCl (Trazodone Hcl 50 Mg Tablet) 50 mg PO BEDTIME MRX1 PRN PRN Reason: Insomnia Last Admin: 10/18/24 20:50 Dose: 50 mg Vitamin D (Cholecalciferol (Vitamin D3) 25 Mcg Tablet) 25 mcg PO DAILY DEV Last Admin: 10/21/24 08:46 Dose: Not Given Allergies Allergies Allergy/AdvReac Type Severity Reaction Status Date / Time clonidine Allergy Unknown Verified 10/16/24 12:46 melatonin Allergy Unknown Verified 10/16/24 12:46 quetiapine Allergy Unknown Verified 10/16/24 12:46 clonidine Allergy Unknown Uncoded 10/16/24 12:47 Assessment & Plan Assessment & Plan (1) Schizophrenia: Status: Acute Code(s): F20.9 - Schizophrenia, unspecified (2) Opioid use disorder: Status: Acute Code(s): F11.90 - Opioid use, unspecified, uncomplicated (3) Elevated LFTs: Status: Acute Code(s): R79.89 - Other specified abnormal findings of blood chemistry Plan 59/m with schizophrenia on a community [place], living in a correction who presents to the ED after he himself called 911; correction reports patient has decompensated and has been acting erratically. -has chronically elevated LFTs, random glucose > 150, Hospital course: If ECT is needed, get routine ECG and uless abnormal, no further testing would be needed 10/17/2024: Continue current regimen and plans. Added Zyprexa 5 mg b.i.d. 10/18 Patient guarded with much of staff. Pacing up and down the rankin, talking to himself, intense, mumbling out loud and yelled I am going to kill [that] person... With internal communications writer, patient is calm, guarded but cooperative and polite (though intermittently whispering to himself under his breath); patient denied that anything unusual happened at the correction. He said nothing out of the ordinary happened... He explained he had concerns that something was being tampered with but patient would not tell internal communications writer what it was. Because of this he called 911. Patient denies any SI or HI or AVH. He acknowledges that a [place] order exists however he says he does not think it is necessary or that he needs medication. Patient tells internal communications writer that back in 2007 he purposely lied to a psychiatrist, saying he had psychotic symptoms, in order to get disability/social security. He says thus he is currently misdiagnosed and does not have any psychotic illness. Patient says he does not plan to go back to the correction. And that he is fine with living in a [facility] -has been thus far refusing medication 10/19 Sw discussed case with guardian (who gave permission to talk w/ correction) and with correction staff who report that patient stopped taking medications around May 2024; he returned from substance abuse program this September, continuing to refuse meds. Since back he's been having intermittent outbursts of yelling and kicking or banging on the door, unsettling and scaring residents. He's been pacing much of the time. This past week he called 911 saying there were people in the basement and attic; police brought pt to hospital. [facility] staff, Manuel, reported that on medication patient is calm, polite, gets along well with others. -Industrial Services Worker and social work specialist discussed this with patient who said this was all lies, that he never called the police and said that. Patient reiterated that it is a false diagnosis however he accepted that medication is court ordered and received Invega Sustenna without problem -for medication to be effective patient requires 2nd loading dose of 156 mg within the next 5-7 days; 12 B is due on and patient is very unlikely to get follow-up injection; will consider how to best proceed 10/20 Discussed treatment with patient; patient continues to deny any psychiatric symptoms, paranoid delusions or history of AH at all. He also says he has not go back to the correction and does not care if he has been banned from several shelters in the community, he will figure something out on his own. Industrial Services Worker discussed that he has a guardian and court-ordered medication and although patient continued to challenge these ideas, consented to remain in the hospital, signed a CV and get his next installment of Invega Sustenna as long as he was able to discharge this Friday, something with which internal communications writer agreed. Throughout these discussions patient would break off and start whispering to himself. Industrial Services Worker finds it necessary for patient to adhere with his court-ordered medication; his treatment team in the community appealed to a contract clerk who after hearing the evidence, mandated treatment with antipsychotic medication;. Patient has mostly remained in good behavioral and impulse control throughout his time in the unit and is organized in speech behavior; however internal communications writer agrees that antipsychotic medication remains a necessary component of patient's stability given his history, recent paranoid delusions, current internal preoccupation, erratic behavior at the correction which was unsettling to peers and history/categorization as a level 3 sex offender. -patient's guardian discussed case with social work specialist and strongly requested patient returned back to correction on discharge. While internal communications writer agrees that this is ideal, it seems that this is ultimately up to the patient himself. Plan: cv; then 3 day notice Q 15 minute checks Received Invega Sustenna 234 mg on 10/19 Patient wants discharge; internal communications writer agrees to give Invega Sustenna 156 mg, next loading dose on 10/22 Gather collateral Level 3 sex offender -continue present care -check hgb A1 C -consider hep b, c Time Spent With Patient Time: Total time managing care of this patient today ____ minutes.
[2024-10-22 08:00] VITALS: BP 126/82; PULSE 108; RESP 16; TEMP 36.4; O2SAT 98
[2024-10-22] MEDS: OLANZapine 5 MG TABLET PO (09:14)
--- NOTE | 2024-10-22 11:08 | P.DS_ITS ---
DS: Providers Provider Date of Service: 10/22/24 Date of admission: 10/15/24 23:33 Date of discharge: 10/22/24 Primary care physician: Unknown Physician Attending physician on admission: Boyd Haddad Consults: 10/16/24 00:55 Consult to Hospitalist Routine Comment: Consulting Provider: [facility] Hospitalists Reason For Exam: Direct admission Attending physician on discharge: Boyd Haddad DS: Diagnosis Discharge Diagnosis (1) Schizophrenia: Status: Acute (2) Opioid use disorder: Status: Acute (3) Elevated LFTs: Status: Acute DS: Medications Discharge Medications Home Medications: Previous Rx's ?Medication ?Instructions ?Recorded melatonin 10 mg tablet 10 mg PO BEDTIME PRN sleep 30 days 10/22/24 #30 tabs olanzapine 5 mg tablet 5 mg PO TID PRN 10/22/24 Anxiety/Restlessness 30 days #30 tabs Data Data Completed and Pending Completed studies during hospitalization [Text1]: 10/16/24 10/16/24 08:36 15:26 Sodium 136 Potassium 5.0 Chloride 104 Carbon Dioxide 28 Anion Gap 9 L BUN 16 Creatinine 0.78 Estim Creat Clear Calc 92.1 Estimated GFR > 60 Random Glucose 156 H Estimat Average Glucose 120 Hemoglobin A1c % 5.8 Calcium 9.4 D Total Bilirubin 0.4 AST 163 H ALT 264 H Alkaline Phosphatase 230 H Total Protein 7.7 Albumin 3.8 Hep Bs Antigen Negative Hep Bs Antibody REACTIVE Hep B Core Total Ab Reactive Hep B Core IgM Ab Cancelled Hepatitis C Ab (EIA) Reactive H DS: Summary Time Spent with Patient Time attestation: Total time managing care of this patient today ____ minutes. Discharge Plan Discharge Anticipated Discharge Date/Time: 10/22/24 11:08 Patient Disposition: Detention Discharge Diagnosis: Schizophrenia [facility] ([facility] opens at 5:00 pm nightly and individuals have to be out of the fdc by 8 am daily. You can reach out to fdc staff at [phone]) [facility] Emergency [facility]ention [Other] - 1 Week (Emergency Detention Resources) [facility] [Other] - 1 Week (Emergency Detention Resources) [facility] [Other] - 1 Week (Community resource that may be able to assist you in accessing treatment ) [facility] Emergency Detention and Diversion [Other] - 1 Week (Patient may call [facility] to gain assistance in finding fdc.) Physician,Unknown J [Primary Care Provider] - 1 Week Discharge Medications: New olanzapine 5 mg Tablet 5 mg PO TID PRN (Reason: Anxiety/Restlessness) 30 Days Qty: 30 0RF Changed melatonin 10 mg tablet 10 mg PO BEDTIME PRN (Reason: sleep) 30 Days Qty: 30 0RF Discontinued benztropine 1 mg tablet 1 mg PO BID 30 Days Qty: 60 0RF Invega Sustenna 156 mg/mL syringe 156 mg IM ONCE 1 Days Qty: 1 0RF Rx Instructions: administer on 02/09/24 Invega Sustenna 234 mg/1.5 mL syringe 234 mg IM Q30D 28 Days Qty: 1.5 0RF Rx Instructions: administer on 03/05/24 propranolol 10 mg Tablet 10 mg PO TID PRN (Reason: anxiety or tremor) 30 Days Qty: 30 0RF Protocol: Hold for SBP/HR < HOLD for SBP < : 90 HOLD for HR < : 60 risperidone [Risperdal] 3 mg tablet 2 mg PO BEDTIME risperidone 1 mg tablet 1 mg PO DAILY risperidone 2 mg tablet 2 mg PO BEDTIME albuterol sulfate 90 mcg/actuation HFA aerosol inhaler 1 puff inhalation Q6H PRN (Reason: wheezing) cholecalciferol (vitamin D3) 25 mcg (1,000 unit) tablet 25 mcg DAILY trazodone 50 mg Tablet 50 mg PO BEDTIME Discharge Orders: Discharge Order (Routine); Ordered 10/22/24 Ordered By: Boyd Haddad Diet: Regular diet Activity on Discharge: As tolerated Stand Alone Forms: Patient Portal Discharge page Print Language: Sami Care Plan Goals: Maintain mood and safe behaviors Take medications as prescribed Continue to pursue sobriety Practice coping skills Continue with outpatient providers and reach out to them as needed Health Concerns: Mood stability and behaviors Sobriety Plan of Treatment: Follow up with your PCP, psychiatric provider and other outpatient providers regarding above concerns Take medications as prescribed Assessment: Risk assessment at time of discharge:? Patient was interviewed prior to discharge and found to be fully oriented. Patient is not in imminent risk of harm to self or others and has a safety plan that includes presenting to the closest ER or calling 911 if feeling unsafe, which he has already demonstrated a willingness and ability to do.? Patient has been observed closely by nursing and unit staff throughout admission; patient has not engaged in any behaviors that suggest dangerousness to self or others and has demonstrated appropriate behaviors and impulse control
[2024-10-22] MEDS: Milk of Magnesia 30 ML ORAL.SUSP PO (12:13)
[2024-10-22] MEDS: traMADoL HCL 50 MG TABLET 25 MG PO (14:48)
[2024-10-22] MEDS: RISPERDAL CONSTA 37.5 MG 1 EACH IM (15:04)
--- NOTE | 2024-10-22 15:31 | PC.NURSE ---
Througout the shift, Prabhu was paranoid, labile, irritable, tangential at times. He refused Invega injection I want to have a say in my care , Consta was ordered ultimately through [facility] outpatient pharmacy. He refused to take it without talking with Dr Haddad as I was not the one who obtained it from pharmacy and the box wasnt sealed. Dr Haddad spoke to him, he agreed to med, this nurse gave it left deltoid without incident. He was irritated and believed staff poisoned his belongings. He grew agitated when he found out his mode of transportation was the bus and he refused to leave. After a couple of minutes he agreed to leave the unit. He was escorted off by Myrtle Parson [facility] without incident.
== END 2024-10-22 15:21 | disposition home or self-care (01) | DRG 885 ==
PROVIDERS: Internal Medicine; Psychiatry & Neurology Psychiatry; Admitting Provider Psychiatry & Neurology Psychiatry; Visit Provider Psychiatry & Neurology Psychiatry
DX: F20.9 Schizophrenia, unspecified (principal); F17.210 Nicotine dependence, cigarettes, uncomplicated; Z71.6 Tobacco abuse counseling; F11.90 Opioid use, unspecified, uncomplicated; Z23 Encounter for immunization; Z91.148 Patient's other noncompliance with medication regimen for other reason; Z79.899 Other long term (current) drug therapy
CPT/HCPCS: 36415; 80053; 83036; 86704; 86706; 86803; 87340; 90656; J2426

== ENCOUNTER → 2024-10-15 23:33 | Outpatient (BNV) | payer MEDICARE, SELFPAY | PROVIDERS: Admitting Provider Psychiatry & Neurology Psychiatry; Visit Provider Internal Medicine | DX: R74.01 Elevation of levels of liver transaminase levels (principal); F11.90 Opioid use, unspecified, uncomplicated | CPT/HCPCS: 99221 ==

== ENCOUNTER → 2024-10-15 23:33 | Outpatient (BNV) | payer MEDICARE, SELFPAY | PROVIDERS: Admitting Provider Psychiatry & Neurology Psychiatry; Visit Provider Psychiatry & Neurology Psychiatry | DX: F20.0 Paranoid schizophrenia (principal); F11.90 Opioid use, unspecified, uncomplicated; R74.01 Elevation of levels of liver transaminase levels | CPT/HCPCS: 90792; 99232 ==

== ENCOUNTER 2024-10-22 17:54 | Emergency (ER) | payer MEDICARE, MEDICAID, SELFPAY ==
[2024-10-22 18:03] VITALS: BP 157/79; PULSE 120; RESP 20; TEMP 37; O2SAT 97; BMI 22.6
--- NOTE | 2024-10-22 18:04 | ED.GENADULT ---
HPI - General Adult General Chief complaint: Psychiatric Symptoms Stated complaint: pyschosis? Time Seen by Provider: 10/22/24 19:32 Source: patient, RN notes reviewed and old records reviewed Mode of arrival: ambulatory Limitations: no limitations History of Present Illness ED Provider: Alka OROPEZA narrative: 59-year-old male past medical history significant for schizophrenia, opiate use disorder, hepatitis-C presents for evaluation of ?psychosis. ? Patient was discharged from inpatient psych today. He states that when he was standing outside he ?felt as though I could not think of a rational thought. ? He reports that he is not suicidal. He has been compliant with his medications up until today it was reported that on the inpatient floor he was declining his meds The patient denies any somatic complaints He has no other complaints or concerns at this time Related Data Previous Rx's ?Medication ?Instructions ?Recorded melatonin 10 mg tablet 10 mg PO BEDTIME PRN sleep 30 days 10/22/24 #30 tabs olanzapine 5 mg tablet 5 mg PO TID PRN 10/22/24 Anxiety/Restlessness 30 days #30 tabs risperidone microspheres 37.5 mg/2 37.5 mg (2 mL) IM Q14D 14 days #1 10/22/24 mL intramuscular susp,ext releas ea (Risperdal Consta) Allergies Allergy/AdvReac Type Severity Reaction Status Date / Time clonidine Allergy Unknown Verified 10/22/24 18:05 melatonin Allergy Unknown Verified 10/22/24 18:05 quetiapine Allergy Unknown Verified 10/22/24 18:05 clonidine Allergy Unknown Uncoded 10/22/24 18:05 Review of Systems Constitutional: Constitutional: Denies body ache(s), Denies chills, Denies fever(s) and Denies headache(s) Eyes: Eyes: Denies blurry vision ENT: Denies dysphagia, Denies vertigo, Denies dizziness and Denies headache(s) Cardiovascular: Cardiovascular: Denies chest pain and Denies dyspnea Respiratory: Respiratory: Denies cough and Denies dyspnea Gastrointestinal: Gastrointestinal: Denies abdominal pain and Denies dysphagia Musculoskeletal: Musculoskeletal: Denies back pain Integumentary/Breasts: Skin/Breast: Denies rash Neurologic: Denies vertigo, Denies dizziness and Denies headache(s) Psychiatric: Psychiatric: Denies anxiety PMF Past Medical History Medical History Opioid use disorder Schizophrenia Social History Social History Household Members: Other Household Members Other:: retirement Housing: Other Housing Other:: retirement Patient Tobacco Use Status: Current everyday Tobacco user Tobacco use type: Cigarette Smoked in Last 30 Days: No Use of substances other than those prescribed or required for medical reasons: No Advance Directives: No Advance Directives Information Provided: Yes Do you have a plan to hurt others: No Plan service: No Sexual orientation: Don't Know Physical Exam ED Vital Signs: Vital Signs - 24 hr 10/22/24 18:03 Temperature 98.6 F Pulse Rate 120 H Respiratory Rate 20 Blood Pressure 157/79 H Pulse Oximetry 97 Oxygen Delivery Method Room Air BMI result Body Mass Index 22.6 Const General: healthy appearing, comfortable, no acute distress, alert and awake Nutritional Appearance: well nourished Orientation/consciousness: patient oriented x3 HENMT Head: Yes normocephalic and Yes atraumatic Eyes Eyelids: Yes eyelids normal Conjunctivae: conjunctivae normal Sclerae: sclerae normal Corneas: corneas normal Pupils: Equal, round and reactive pupils present EOM: EOMs intact bilaterally Neck Neck: Yes full ROM Resp Effort & Inspection: normal respiratory effort, able to speak in complete sentences and not labored Cardio Rate: regular rate Rhythm: regular rhythm GI Inspection: No distended Palpation (GI): Soft to palpation, not firm, nontender, no guarding and not rigid Auscultation: normoactive bowel sounds Skin General skin exam: elasticity normal Neuro General: patient oriented x3 Cranial nerves: Yes CN's II-XII intact bilaterally, Yes Equal, round and reactive pupils present and Yes Bilaterally intact EOM present Cognition (Neuro): normal cognition Extrem Other: Moving all extremities well without any obvious deformities Course Course Course Narrative: This is a rapid medical exam performed by Michael Dwyer NP: Additional HPI, ROS, PE not included below will be deferred to primary provider. Patient is a 59-year-old male with history of schizophrenia, opioid use disorder presenting with complaint of psychosis. Denies SI, HI, AH, VH. Calm and cooperative in triage. Discharged from this morning. Plan: med clearance, CARE eval Medications Administered Discontinued Medications Generic Name Dose Route Start Last Admin Trade Name Freq PRN Reason Stop Dose Admin Lactulose 20 gm 10/22/24 20:52 10/22/24 21:56 Lactulose 20 Gm/30 Ml Solution PO 10/22/24 20:53 Not Given ONCE ONE Medical Decision Making Medical Decision Making [facility] Narrative: 59-year-old male past medical history as documented above presents for evaluation of ?psychosis in his words. He was alert and oriented, he has no hallucinations, he is acting appropriately. I did add on an ammonia level as the patient has a history of hepatitis-C with elevated LFTs. This came back elevated to 65. We will give the patient a dose of lactulose, but I do not feel that he requires admission for hepatic encephalopathy as he is alert and oriented, acting appropriately and this is only slightly above normal. Patient is medically cleared for care team evaluation Differential Diagnosis Differential Diagnoses: The differential diagnosis associated with the presentation includes Schizophrenia Medication noncompliance Malingering Hepatic encephalopathy Lab Data [facility] Lab Attestation statement: I reviewed the patient's lab results. Patient has a chronic leukopenia and thrombocytopenia, likely related to his hepatitis-C diagnosis. He has no significant anemia. No significant electrolyte abnormalities. The patient's AST, ALT and alk phos are all slightly elevated and again consistent with his known diagnosis of hepatitis-C. 10/22/24 18:44 10/22/24 18:44 Labs: Lab Results 10/22/24 10/22/24 10/22/24 Range/Units 16:38 18:44 20:25 WBC 3.4 L (4.8-10.8) X10*3/uL RBC 4.53 L (4.60-5.80) X10*6/uL Hgb 14.0 (14.0-18.0) g/dl Hct 40.5 L (42.0-52.0) % MCV 89.4 (80.0-98.0) fL MCH 30.9 (27.0-33.0) pg MCHC 34.6 (31.0-36.0) g/dl RDW 13.8 (11.0-16.0) % Plt Count 58 L (160-400) X10*3/uL MPV 10.6 (9.4-12.4) fL Immature Gran % (Auto) 0.6 H (0.0-0.4) % Neut % (Auto) 65.8 (45-73) % Lymph % (Auto) 19.5 L (20-40) % Mcintosh % (Auto) 11.7 H (2-11) % Eos % (Auto) 1.5 (0-4) % Baso % (Auto) 0.9 (0-2) % Lymph # (Auto) 0.7 L (1.2-4.9) X10*3/uL Mcintosh # (Auto) 0.4 (0.1-1.2) X10*3/uL Eos # (Auto) 0.1 (0.0-0.4) X10*3/uL Baso # (Auto) 0.0 (0.0-0.2) X10*3/uL Abs Immat Gran (auto) 0.02 (0.00-0.03) X10*3/uL Absolute Neuts (auto) 2.3 (2.0-8.3) x10*3/uL Absolute Nucleated RBC 0.000 (0.0-0.012) X10*3/uL Nucleated RBC % (auto) 0.0 (0.0-0.2) /100WBC Sodium 139 (135-145) mmol/L Potassium 4.5 (3.3-5.1) mmol/L Chloride 104 (96-108) mmol/L Carbon Dioxide 27 (22-29) mmol/L Anion Gap 13 (12-20) BUN 18 H (9-16) mg/dL Creatinine 0.69 (0.5-1.4) mg/dL Estim Creat Clear Calc 111.7 Estimated GFR > 60 Random Glucose 135 H (60-115) mg/dL Calcium 9.6 (8.4-10.2) mg/dL Total Bilirubin 0.4 (0.0-1.0) mg/dL AST 233 H (5-37) U/L ALT 384 H (0-40) U/L Alkaline Phosphatase 211 H (39-117) U/L Ammonia 65 H (13-55) umol/L Total Protein 7.8 (6.5-8.0) g/dL Albumin 3.8 (3.5-5.0) g/dL Urine Color Yellow Urine Appearance Clear Urine pH 6.0 (5.0-9.0) Ur Specific [place] 1.025 (1.005-1.025) Urine Protein Negative (Neg-Trace) mg/dL Urine Glucose (UA) Negative (Negative) mg/dL Urine Ketones Negative (Negative) mg/dL Urine Blood Negative (Negative) Urine Nitrite Negative (Negative) Ur Leukocyte Esterase Negative (Negative) Urine Opiates Screen Not Detected (Not Detect) Ur Buprenorphine Scrn Not Detected (Not Detect) ng/mL Ur Oxycodone Screen Not Detected (Not Detect) ng/mL Urine Methadone Screen Not Detected (Not Detect) ng/mL Urine Fentanyl Screen Not Detected (Not Detect) Ur Barbiturates Screen Not Detected (Not Detect) Ur Phencyclidine Scrn Not Detected (Not Detect) Ur Amphetamines Screen Not Detected (Not Detect) U Benzodiazepines Scrn Not Detected (Not Detect) Urine Cocaine Screen Not Detected (Not Detect) U Marijuana (THC) Screen Not Detected (Not Detect) Ethyl Alcohol 11 mg/dL Influenza Type A (PCR) NEGATIVE (Negative) Influenza Type B (PCR) NEGATIVE (Negative) RSV RNA Qual (PCR) NEGATIVE (Negative) SARS-CoV-2 RNA (RT-PCR) NEGATIVE (Negative) Discharge Plan Discharge Clinical Impression: Schizophrenia, Elevated LFTs Patient Disposition: Home, Self-Care Instructions: Schizophrenia (ED) Additional Instructions: Take all your medications as prescribed. Follow-up with your outpatient providers. Return for new or worsening symptoms, especially if you have any thoughts of harming herself or anybody else Prescriptions: No Action olanzapine 5 mg Tablet 5 mg PO TID PRN (Reason: Anxiety/Restlessness) 30 Days Qty: 30 0RF melatonin 10 mg tablet 10 mg PO BEDTIME PRN (Reason: sleep) 30 Days Qty: 30 0RF risperidone microspheres [Risperdal Consta] 37.5 mg/2 mL suspension,extended rel recon 37.5 mg IM Q14D 14 Days Qty: 1 0RF Rx Instructions: SEND TO INPT PHARM Interventions: Beckham-Suicide Risk Severity Scale Last Done: 10/22/24 18:34 Print Language: Guinean
--- NOTE | 2024-10-22 18:09 | PC.NURSE ---
Report given to Stefania Aragon RN in Pod. buckle gluer to Pod.
--- NOTE | 2024-10-22 18:40 | PC.NURSE ---
pt presents to the pod from triage calm/cooperative. pt recently discharged from this afternoon. pt states he was set up to be discharged to a residential unit in [place] but did not make it due to increased psychosis. pt completely alert and oriented at this time. pt unable to state how he's feeling and refusing to cooperate. answering questions/following commands appropriately. does not seem to be delusional at this time. denies SI/HI/AV/VH. reports compliancy w/ medication. urine/labs/swabs obtained/sent to lab. pt pending care team consult at this time. plan of care ongoing.
[2024-10-22 18:46] LABS: Appearance Urine Clear; Color Urine Yellow; Glucose Urine UA Negative (Negative); Leukocyte Esterase Urine Negative (Negative); Nitrite Urine Negative (Negative); Specific Gravity - Urine 1.025 (1.005-1.025); Urine Blood Negative (Negative); Urine Ketones Negative (Negative); Urine Protein Negative (Neg-Trace)
[2024-10-22 18:51] LABS: MANUAL DIFF FLAG NO
[2024-10-22 18:56] LABS: Basophils Percent Auto 0.9 % (0-2); Imm Gran Abs Auto 0.02 X10*3/uL (0.00-0.03); Imm Gran Pct Auto 0.6 % (0.0-0.4); Mean Corpuscular Volume 89.4 fL (80.0-98.0); Monocytes Percent Auto 11.7 % (2-11); Neutrophils Absolute Auto 2.3 x10*3/uL (2.0-8.3); PLT CLUMP 1; Red Cell Distribution Width 13.8 % (11.0-16.0); SCAN SMEAR FLAG 1
[2024-10-22 18:58] LABS: Eosinophils Absolute Auto 0.1 X10*3/uL (0.0-0.4); Eosinophils Percent Auto 1.5 % (0-4); Hematocrit 40.5 % (42.0-52.0); Lymphocytes Absolute Auto 0.7 X10*3/uL (1.2-4.9); Lymphocytes Percent Auto 19.5 % (20-40); Mean Corpuscular HGB Conc 34.6 g/dl (31.0-36.0); Mean Corpuscular Hemoglobin 30.9 pg (27.0-33.0); Mean Platelet Volume 10.6 fL (9.4-12.4); Monocytes Absolute Auto 0.4 X10*3/uL (0.1-1.2); Neutrophils Percent Auto 65.8 % (45-73); Red Blood Count 4.53 X10*6/uL (4.60-5.80)
[2024-10-22 19:02] LABS: Amphetamine Screen Urine Not Detected (Not Detect); Barbiturates, Urine Not Detected (Not Detect); Benzodiazepines Screen Urine Not Detected (Not Detect); Buprenorphine Scr Not Detected (Not Detect); Cannabinoid Screen Urine Not Detected (Not Detect); Cocaine Screen Urine Not Detected (Not Detect); Fentanyl, urine Not Detected (Not Detect); Methadone Screen, Urine Not Detected (Not Detect); Opiate Screen Urine Not Detected (Not Detect); Oxycodone Screen Urine Not Detected (Not Detect); Phencyclidine Screen Urine Not Detected (Not Detect)
[2024-10-22 19:10] LABS: Alanine Aminotransferase 384 U/L (0-40); Albumin Level 3.8 g/dL (3.5-5.0); Alkaline Phosphatase 211 U/L (39-117); Anion Gap 13 (12-20); Aspartate Amino Transferase 233 U/L (5-37); Bilirubin Total 0.4 mg/dL (0.0-1.0); Blood Urea Nitrogen 18 mg/dL (9-16); Calcium 9.6 mg/dL (8.4-10.2); Carbon Dioxide 27 mmol/L (22-29); Chloride 104 mmol/L (96-108); Creatinine Clr Calc Pharmacy 111.7; Estimated Glomerular Filt Rate > 60; Ethanol 11 mg/dL; Glucose Random 135 mg/dL (60-115); Potassium 4.5 mmol/L (3.3-5.1); Sodium 139 mmol/L (135-145); Total Protein 7.8 g/dL (6.5-8.0)
[2024-10-22 19:15] LABS: White Blood Count 3.4 X10*3/uL (4.8-10.8)
[2024-10-22 19:16] LABS: Platelet Count 58 X10*3/uL (160-400)
[2024-10-22 19:37] LABS: Influenza A PCR NEGATIVE (Negative); Influenza B PCR NEGATIVE (Negative); Resp Syncy Virus RNA Qual PCR NEGATIVE (Negative); SARS COV2 PCR INHOUSE NEGATIVE (Negative)
--- NOTE | 2024-10-22 19:41 | PC.NURSE ---
patient appears to remain at rest presently respirations even and unlabored appears in no distress.
[2024-10-22 20:40] LABS: Ammonia 65 umol/L (13-55)
--- NOTE | 2024-10-23 01:03 | PC.NURSE ---
this rn assumed care of pt per ori care team pt plan for discharge in am tiffany luanne agreeable to discharge in am, per luanne and care team if pt non compliant with care prior to am okay to call yamel to give pt ride back to [facility]
--- NOTE | 2024-10-23 06:29 | PC.NURSE ---
pt refused vital signs throughout shift. pt states you guys are trying to plug that thing into my arm to stop my heart pt educated on importance of monitoring vital signs while at the hospital pt states you're all crazy here pt redirected back to room
[2024-10-23 07:40] VITALS: BP 145/86; PULSE 100; RESP 16; TEMP 36.7; O2SAT 97
[2024-10-23 08:33] VITALS: BP 142/86; PULSE 98; RESP 16; TEMP 36.6; O2SAT 99
== END 2024-10-23 08:34 | disposition home or self-care (01) ==
PROVIDERS: Physician Assistant; Registered Nurse Emergency; Emergency Provider Emergency Medicine Emergency Medical Services
DX: F25.9 Schizoaffective disorder, unspecified (principal); R79.89 Other specified abnormal findings of blood chemistry; F11.10 Opioid abuse, uncomplicated; F17.210 Nicotine dependence, cigarettes, uncomplicated; B19.20 Unspecified viral hepatitis C without hepatic coma; Z51.81 Encounter for therapeutic drug level monitoring; Z79.899 Other long term (current) drug therapy; Z03.818 Encounter for observation for suspected exposure to other biological agents ruled out
CPT/HCPCS: 0241U; 36415; 80053; 80307; 81003; 82140; 85025; 99285; S9485

== ENCOUNTER 2024-10-23 16:36 | Emergency (ER) | payer MEDICARE, MEDICAID, SELFPAY ==
--- NOTE | ~2024-10-23 | XR_ITS ---
CLINICAL HISTORY: right hip pain hx fracture 3 view, pelvis and right hip Comparison: None Findings: Mildly comminuted avulsion fracture of the right greater trochanter. Moderate displacement of fragments. No dislocation. Minimal arthritic changes, [id number]-luxs-left. The soft tissues are unremarkable. IMPRESSION: Acute fracture of the right greater trochanter. This document has been electronically signed by: Jyotsna Zarate MD on 10/23/2024 18:48:51
[2024-10-23 16:54] VITALS: BP 142/79; PULSE 131; RESP 20; TEMP 36.5; O2SAT 97; BMI 22.1
--- NOTE | 2024-10-23 16:57 | ED.LOWEXIN ---
HPI - Extremity Injury (Lower) General Chief Complaint: Extremity Injury, Lower Stated Complaint: hip issue Time Seen by Provider: 10/24/24 01:54 Source: patient Mode of arrival: ambulatory Limitations: no limitations History of Present Illness ED Provider: Dr. Bobbi Meredith HPI Narrative: Patient comes to the emergency room complaining of hip pain. Patient states that a month ago he fractured his hip on the right side, went to [facility]. Patient reporting of ongoing pain. Patient denies any recent fall. Of note, patient was discharged 2 days ago from psychiatry, patient was admitted for the diagnosis of schizophrenia, opiate use disorder and elevated LFTs. Related Data Previous Rx's ?Medication ?Instructions ?Recorded melatonin 10 mg tablet 10 mg PO BEDTIME PRN sleep 30 days 10/22/24 #30 tabs olanzapine 5 mg tablet 5 mg PO TID PRN 10/22/24 Anxiety/Restlessness 30 days #30 tabs risperidone microspheres 37.5 mg/2 37.5 mg (2 mL) IM Q14D 14 days #1 10/22/24 mL intramuscular susp,ext releas ea (Risperdal Consta) ibuprofen 600 mg tablet 600 mg PO Q8H PRN fever or pain 10/24/24 #30 tabs Allergies Allergy/AdvReac Type Severity Reaction Status Date / Time clonidine Allergy Unknown Verified 10/23/24 16:59 melatonin Allergy Unknown Verified 10/23/24 16:59 quetiapine Allergy Unknown Verified 10/23/24 16:59 clonidine Allergy Unknown Uncoded 10/22/24 18:05 Review of Systems Review of Systems: Constitutional : No Weight loss, No Fever, No Chills, No Night Sweats, No Fatigue, No Malaise ENT/Mouth : No Hearing loss, No Ear Pain, No Nasal Congestion, No Sinus Pain, No Hoarseness, No sore throat, No Rhinorrhea, No Swallowing Difficulty Eyes: No Eye Pain, No Swelling, No Redness, No Foreign Body, No Discharge, No Vision Changes Cardiovascular : No Chest Pain, No SOB, No Dyspnea on Exertion, No Orthopnea, No Edema, No Palpitations Respiratory : No Cough, No Sputum, No Wheezing, No Smoke Exposure, No Dyspnea Gastrointestinal : No Nausea, No Vomiting, No Diarrhea, No Constipation, No abdominal Pain, No Hematochezia, No Melena Genitourinary : no irregular bleeding, No Dysuria, No Urinary Frequency, No Hematuria, No Urinary Incontinence, No Urgency, No Flank Pain, No Urinary Flow Changes, No Hesitancy Musculoskeletal : Complaining of right hip pain,, No Myalgias, No Joint Swelling Skin : No Skin Lesions, No rash Neuro : No Weakness, No Numbness, No Paresthesias, No Loss of Consciousness, No Dizziness, No Headache Psych : No Anxiety/Panic, No Depression, No SI/HI/AH/VH, No Social Issues, Heme/Lymph: No Bruising, No Bleeding,No Lymphadenopathy Endocrine : No Polyuria, No Polydipsia, No Temperature Intolerance [facility] Past Medical History Medical History Opioid use disorder Schizophrenia Social History Social History Household Members: Other Household Members Other:: half-way Housing: Other Housing Other:: half-way Patient Tobacco Use Status: Current everyday Tobacco user Tobacco use type: Cigarette Advance Directives: No Advance Directives Information Provided: No Do you have a plan to hurt others: No Plan service: No Sexual orientation: Don't Know Physical Exam Vital Signs: Vital Signs: Last Vital Signs Temp 98.5 F 10/23/24 23:52 Pulse 128 H 10/23/24 23:52 Resp 14 10/23/24 23:52 BP 127/81 10/23/24 23:52 Pulse Ox 95 10/23/24 23:52 O2 Del Method Room Air 10/23/24 23:52 BMI result Body Mass Index 22.1 Const: Other: Appearance: Alert. Oriented X3. No acute distress. Eyes: Pupils equal, round and reactive to light. ENT: Pharynx normal. Neck: Normal inspection. Neck supple. No lymph nodes noted. No crepitus CVS: Normal heart rate and rhythm. Pulses normal. Normal S1 and S2 Respiratory: No respiratory distress. Breath sounds normal. No Wheezing. No rales Abdomen: Soft and nontender. No rigidity. No distention. Skin: Skin warm and dry. Normal skin color. Normal skin turgor. Extremities: No lower extremity edema. No Lacerations. No Rash. Patient is able to flex and extend and walk bearing weight on both legs. Neuro: Oriented X 3. No motor deficit. No sensory deficit. Moving all extremities. No slurred speech. CN 2 through 12 grossly intact Psych: calm, cooperative, normal affect Course Course Course Narrative: This is a Rapid Medical Examination (RME) performed by Seb Tao PA-C in triage. Full HPI, ROS, assessment and treatment plan per primary provider in the Main ED. 59 yo male hx of schizophrenia and opioid use disorder here for eval of right hip pain x1 month. he reports diagnosis of right hip fracture 1 mo ago. having continued pain to right hip. discharged from our facility this moring. Plan: xrs Medications Administered Discontinued Medications Generic Name Dose Route Start Last Admin Trade Name Freq PRN Reason Stop Dose Admin Ibuprofen 600 mg 10/24/24 02:05 10/24/24 03:01 Ibuprofen 600 Mg Tablet PO 10/24/24 02:06 600 mg ONCE ONE Administration Medical Decision Making Medical Decision Making MDM Narrative: X-ray of the hip shows acute fracture of the greater trochanter Patient known to have a right hip fracture. Unclear if this is new or old Records from [facility] pending We received records from [facility]. Since 08/31/2024, patient had reported twice to the emergency room at [facility]. X-ray of the hip at [facility] showed right greater trochanteric hip fracture. Patient had referred to their orthopedic surgeon. Patient was given crutches and instructions to follow-up with their orthopedic surgeon. Patient is able to bear weight. Patient has already follow-up with orthopedics. Was given ibuprofen. Was confirmed that patient's current condition is chronic Differential Diagnosis Differential Diagnoses: The differential diagnosis associated with the presentation includes Critical Care Time Critical Care Time Critical Care Time: Yes Total Critical Care Time: 45 Attestation: I have personally provided critical care time. Time includes review of lab data, radiology results, discussion with consultants, and monitoring for potential decompensation. Intervention performed as documented. Discharge Plan Discharge Clinical Impression: Chronic hip pain Patient Disposition: Home, Self-Care Instructions: Chronic Pain (ED) Additional Instructions: You have been seen at [facility] for your hip fracture. He will have instructions from them to follow-up with orthopedics. Per the records, URI have an appointment. Please follow-up with your primary care physician tomorrow. If you have any worsening or new symptoms, please return to the emergency room or call 911 Prescriptions: New ibuprofen 600 mg tablet 600 mg PO Q8H PRN (Reason: fever or pain) Qty: 30 0RF No Action olanzapine 5 mg Tablet 5 mg PO TID PRN (Reason: Anxiety/Restlessness) 30 Days Qty: 30 0RF melatonin 10 mg tablet 10 mg PO BEDTIME PRN (Reason: sleep) 30 Days Qty: 30 0RF risperidone microspheres [Risperdal Consta] 37.5 mg/2 mL suspension,extended rel recon 37.5 mg IM Q14D 14 Days Qty: 1 0RF Rx Instructions: SEND TO INPT PHARM Print Language: Faroese
[2024-10-23 23:52] VITALS: BP 127/81; PULSE 128; RESP 14; TEMP 36.9; O2SAT 95
[2024-10-24] MEDS: Ibuprofen 600 MG TABLET PO (03:01)
[2024-10-24 03:25] VITALS: BP 131/76; PULSE 106; RESP 18; TEMP 36.7; O2SAT 97
[2024-10-24 04:08] VITALS: BP 131/76; PULSE 106; RESP 18; TEMP 36.7; O2SAT 97
== END 2024-10-24 03:40 | disposition home or self-care (01) ==
PROVIDERS: Emergency Provider Emergency Medicine
DX: M25.551 Pain in right hip (principal); G89.29 Other chronic pain
CPT/HCPCS: 73502; 99283

== ENCOUNTER → 2024-10-23 16:59 | Outpatient (BNV) | payer MEDICARE, MEDICAID, SELFPAY | PROVIDERS: Visit Provider Radiology Diagnostic Radiology | DX: M25.551 Pain in right hip (principal) | CPT/HCPCS: 73502 ==